=== PATIENT | female | born 1950 | race Caucasian/White ===

== ENCOUNTER → 2016-06-03 | Outpatient (CLI) | payer MEDICARE ==
--- NOTE | 2016-06-04 07:48 | MM ---
Reason for exam: screening (asymptomatic). Last mammogram was performed 1 year ago. History: Patient is postmenopausal. Family history of breast cancer in maternal grandmother and breast cancer in maternal cousin at age 40. Took hormonal contraceptives for 10 years. Physical Findings: A clinical breast exam by your physician is recommended on an annual basis and results should be correlated with mammographic findings. MG Screening Mammo w CAD Bilateral CC and MLO view(s) were taken. Prior study comparison: June 01, 2015, bilateral MG screening mammo w CAD. May 29, 2014, bilateral MG screening mammo w CAD. The breast tissue is almost entirely fat. New nodule measures 1cm approximately 14cm from nipple upper outer quadrant of the right breast. ASSESSMENT: Incomplete: need additional imaging evaluation, BI-RAD 0 RECOMMENDATION: Ultrasound of the right breast. [facility] will attempt to contact patient to return for ultrasound.
== END | disposition home or self-care (01) ==
LOC: RADMAMWWP 08:14
PROVIDERS: ATTEND Family Medicine
DX: Z12.31 Encounter for screening mammogram for malignant neoplasm of breast (principal)

== ENCOUNTER → 2016-06-05 | Outpatient (CLI) | payer MEDICARE ==
--- NOTE | 2016-06-05 08:40 | USB ---
Reason for exam: additional evaluation requested from abnormal screening. History: Patient is postmenopausal. Family history of breast cancer in maternal grandmother and breast cancer in maternal cousin at age 40. Took hormonal contraceptives for 10 years. Physical Findings: Nurse did not find any significant physical abnormalities on exam. US Breast Workup Limited RT Right breast ultrasound demonstrates a 0.7 x 0.4 x 0.7cm solid lesion at 9:30. These results were verbally communicated with the patient and result sheet given to the patient on 06/05/16. ASSESSMENT: Suspicious, BI-RAD 4 RECOMMENDATION: Surgical consultation and ultrasound core biopsy of the right breast. Called Dr. Hill with mammographic findings and has scheduled an appointment for the patient for 06/05/16 at 9:[address] Gonzalez. PRELIMINARY REPORT CALLED AND FAXED TO DR. GONZALEZ ON AT 8:40/TP.
== END ==
LOC: RADUSWWP 07:36
PROVIDERS: ATTEND Family Medicine
DX: R92.8 Other abnormal and inconclusive findings on diagnostic imaging of breast (principal)

== ENCOUNTER → 2016-06-16 | Day surgery (SDC) | payer MEDICARE ==
[~2016-06-16] MED LIST: ALPRAZolam 0.25 MG TAB ONE; BACITRACIN OINT 1 EACH PACKET TOPICAL ONE; LIDOCAINE 1% INJ 10MG/ML (20 ML MDV) ONE
--- NOTE | 2016-06-16 14:00 | USB ---
EXAMINATION TYPE: US discontinued breast bx RT DATE OF EXAM: 06/16/2016 1:15 PM HISTORY: Right breast lesion Comparison: Ultrasound 06/05/2016 as well as mammography 06/03/2016 The lesion seen on prior ultrasound could not be localized with certainty on today's examination. Giv en the appearance of the lesion on mammograph itWas decided to terminate ultrasound guided core biops y and procedure to mammotome core biopsy. This was discussed with the patient. IMPRESSION: 1. BI-RADS 4 suspicious Recommendation: Mammotome core biopsy right breast.
--- NOTE | 2016-06-16 14:16 | MM ---
Stereotactic Mammotome core biopsy right breast. HISTORY: Right breast density The density in question within the right breast were targeted by the undersigned. Procedure was performed by the undersigned. Informed consent was obtained and all of the patients questions were answered. The standard sterile technique was utilized and appropriate local anesthesia was obtained with 1% lidcocaine. Mammotome probe was advanced and multiple core samples were obtained and sent to pathology for interpretation. Microclip marker was deployed at the site of biopsy. Post procedural mammogram demonstrates appropriate deployment of radiopaque clip marker. The patient tolerated the procedure well and left the department in stable condition. Pathology results are pending. IMPRESSION: Successful stereotactic core biopsy right breast with pathology results pending. 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 SEE SURGICAL PATHOLOGY CANCER CASE SUMMARY AND COMMENT. Recommendation Surgical consult of the right breast. DON
== END ==
LOC: RADUSWWP 11:22
PROVIDERS: ATTEND Surgery
DX: C50.911 Malignant neoplasm of unspecified site of right female breast (principal); R92.8 Other abnormal and inconclusive findings on diagnostic imaging of breast
CPT/HCPCS: 19083; 88305; 88342; 88341; 19081; 76641; A4648; J2001

== ENCOUNTER 2016-07-01 11:48 | Day surgery (SDC) | payer MEDICARE, OTHER ==
[2016-06-30 08:28] VITALS: BMI 35.2
[~2016-07-01 11:48] MED LIST changes: -ALPRAZolam 0.25 MG TAB ONE; -BACITRACIN OINT 1 EACH PACKET TOPICAL ONE; +DEXAMETHASONE SOD PHOSPHATE 10 MG/ML 1 ML VIAL IV ONE; +HEPARIN SODIUM,PORCINE 5,000 UNIT/ML 1 ML VIAL SQ ONE; +LACTATED RINGERS 1,000 ML IV SCH; -LIDOCAINE 1% INJ 10MG/ML (20 ML MDV) ONE; +ONDANSETRON 4 MG/2 ML VIAL IVP ONE; +Pre Op ABX Message 1 EACH MISC MISCELLANE ONE
[2016-07-01 12:32] VITALS: RESP 16
[2016-07-01] MEDS ORDERED: LIDOCAINE 1% 20 ML VIAL (10MG/ML) FOR IV START INTRADERMA ONE (12:37)
[2016-07-01 12:48] LABS: Glucose,Whole Blood 93 mg/dL (75-99)
[2016-07-01] MEDS ORDERED: LIDOCAINE 1% INJ 10MG/ML (20 ML MDV) SQ ONE (13:33)
[2016-07-01] MEDS ORDERED: METHYLENE BLUE 50 MG/10 ML AMPUL MISCELLANE ONE (14:05)
[2016-07-01] MEDS ORDERED: METHYLENE BLUE 50 MG/10 ML AMPUL INJ ONE ×3 (14:26→15:08)
[2016-07-01] MEDS ORDERED: CLINDAMYCIN 600 MG in DEXTROSE 5% IN WATER 50 ML IVPB STA ×2 (14:43)
[2016-07-01] MEDS ORDERED: PROPOFOL 10 MG/ML 20 ML VIAL IV ONE (14:49)
[2016-07-01] MEDS ORDERED: fentaNYL (PF) 50 MCG/ML 2 ML AMP ONE (14:49)
[2016-07-01] MEDS ORDERED: LIDOCAINE 1% INJ 10MG/ML (20 ML MDV) ONE (14:49)
[2016-07-01] MEDS ORDERED: SUCCINYLCHOLINE CHLORIDE 100 MG/5 ML SYR IV ONE (14:49)
[2016-07-01] MEDS ORDERED: ROCURONIUM BROMIDE 10 MG/ML 10 ML VIAL IV ONE (14:49)
[2016-07-01] MEDS ORDERED: MIDAZOLAM 2 MG/2 ML VIAL ONE (14:49)
[2016-07-01] MEDS ORDERED: HEPARIN SODIUM,PORCINE 5,000 UNIT/ML 1 ML VIAL SQ ONE (14:55)
[2016-07-01] MEDS ORDERED: LACTATED RINGERS 1,000 ML IV ONE ×2 (15:06)
--- NOTE | 2016-07-01 16:42 | P.OP ---
Date of Procedure: 07/01/16 Preoperative Diagnosis: Right breast cancer Postoperative Diagnosis: Same, invasive ductal Procedure(s) Performed: Injection of methylene blue, right breast lumpectomy, sentinel node biopsy, margin probe interrogation of specimen, placement of Ragini device Implants: Anesthesia: GETA Surgeon: Jael Hurst Estimated Blood Loss (ml): 20 IV fluids (ml): 800 Pathology: other (Right breast tissue, sentinel node) Condition: stable Disposition: PACU Indications for Procedure: Right breast cancer Operative Findings: Right breast nodule/cancer near needle localization wire Description of Procedure: Patient was taken to the operating room and following induction of general anesthesia periareolar injection of methylene blue diluted was performed. The breast was then massaged. The breast and axilla were then prepped and draped in a sterile fashion. A hint scar right lateral incision was then made. Through this incision using the lighted retractor we were able to identify the needle localization guidewire. This was followed superiorly and wide excision of the area of concern was performed. Margin probe interrogation of the specimen was then performed showing that there was some anterior positivity. 4 additional anterior tissue was obtained. The anterior dissection was performed to just under the skin of the breast. The posterior dissection was performed to the chest wall on the muscle. All other margins were negative by interrogation or by palpation. After this the specimen was painted for orientation and sent to radiology, for confirmation that the area of concern about removed was obtained. The axilla was approached through the same incision. A blue radioactive lymph node was identified. The 10 second count on the radioactive lymph node was 20,319, the background count was 4. The lymph node was sent to pathology for frozen section evaluation which did not reveal any tumor. Following this the wound was well irrigated thoroughly was no evidence of any bleeding. A Ragini balloon device was placed in the location of where the tumor had been removed. The superior tissue was approximated using a 3-0 Vicryl suture. The axillary incision was closed using deep 3-0 Vicryl sutures. This was followed by 4-0 Monocryl and a nylon skin suture. The patient tolerated the procedure in stable condition. All instrument and sponge counts were correct at the end of the case.
--- NOTE | 2016-07-01 16:49 | P.DS ---
Providers Attending physician: Jael Hurst Primary care physician: Stated None Plan - Discharge Summary New Discharge Prescriptions: Clindamycin [Cleocin] 150 mg PO Q6H #30 capsule HYDROcodone/APAP 5-325MG [[place] 5] 1 - 2 each PO Q4H PRN #20 tab PRN Reason: Pain Discharge Medication List Magnesium 200 mg PO DAILY 06/30/16 [History] Multivitamins, Thera [Multivitamin (formulary)] 1 tab PO DAILY 06/30/16 [History ] Naproxen 500 mg PO DAILY 06/30/16 [History] metFORMIN HCL [Glucophage Xr] 500 mg PO DAILY 06/30/16 [History] traMADol HCL [Ultram] 50 mg PO TID PRN 06/30/16 [History] Clindamycin [Cleocin] 150 mg PO Q6H #30 capsule 07/01/16 [Rx] HYDROcodone/APAP 5-325MG [[place] 5] 1 - 2 each PO Q4H PRN #20 tab 07/01/16 [Rx] Follow up Appointment(s)/Referral(s): Jael Hurst MD [STAFF PHYSICIAN] - 1 Week Activity/Diet/Wound Care/Special Instructions: Wear bra at all times Do not drive today do not drive if taking pain medication Do not shower while Ragini is in place Discharge Disposition: HOME SELF-CARE
[2016-07-01 16:56] VITALS: TEMP 97.4
[2016-07-01] MEDS: HYDROmorphone 1 MG/ML 1 ML SYRINGE IVP PRN ×2 (16:59→17:08)
[2016-07-01 17:10] LABS: Glucose,Whole Blood 112 mg/dL (75-99)
[2016-07-01] MEDS ORDERED: HYDROcodone/APAP 5-325MG 1 EACH TAB PO ONE (17:39)
[2016-07-01 18:04] VITALS: BP 172/77; PULSE 83
--- NOTE | 2016-07-02 08:04 | NM ---
EXAMINATION TYPE: NM sentinel node injection DATE OF EXAM: 07/01/2016 2:03 PM COMPARISON: NONE HISTORY: Breast cancer TECHNIQUE AND FINDINGS: The procedure of sentinel lymph node injection was explained to the patient. The benefits, alternatives, and risks were discussed. An informed consent was then obtained. Overlying skin is cleaned with sterile alcohol. Lidocaine buffered with bicarbonate was used as anes thetic into the skin and subcutaneous tissue surrounding the nipple. Following this, 545 uCi Tc 99m Filtered Sulfur Colloid was injected into 4 equivalent doses at 12, 3, 6, and 9:00 position surroundi ng the right nipple intradermally. The injection sites were massaged by nuclear medical tech for 10 minutes after injection. T he patient tolerated the procedure well without any immediate complication. The patient was kept in the radiology department for short stay after the procedure and then taken to surgery for surgical pr ocedure what is presumed intraoperative gamma probe will be used for sentinel lymph node detection. IMPRESSION: Right breast radiotracer injection for sentinel node localization as above.
--- NOTE | 2016-07-02 08:07 | MM ---
EXAMINATION TYPE: MG surgical specimen RT DATE OF EXAM: 07/01/2016 4:15 PM COMPARISON: NONE CLINICAL HISTORY: Abnormal mammogram, pathology Technique: Single mammographic specimen FINDINGS: The wire is within the specimen. Surgical clip localized within the specimen. The area of interest appears to be within the specimen. IMPRESSION: 1. Successful wire localization and excision. Recommendations: Surgical consult of the right breast. DON
--- NOTE | 2016-07-02 08:09 | MM ---
EXAMINATION TYPE: MG pre op needle loc RT DATE OF EXAM: 07/01/2016 2:08 PM COMPARISON: 06/16/2016, 06/03/2016 CLINICAL HISTORY: Abnormal mammogram, pathology TECHNIQUE: Needle localization with wire placement and surgical excision of area of concern in the right breast. FINDINGS: The procedure of needle localization with wire placement and than surgical excision was explained to the patient. Benefits, alternatives, and risks were discussed. An informed consent was then obtained. The shortest pathway for procedure was chosen. Shortest pathway was lateral approach. The overlying skin was prepped and draped in usual sterile fashion. Lidocaine buffered with bicarbonate was used as anesthetic into the skin and subcutaneous tissue up to the level of area of concern. A 7 cm needle was used. It was placed via a lateral approach under mammographic guidance. Subsequent 90 degrees mammogram show the needle to be in satisfactory position relative to the targeted area. At this point, wire was placed and the needle was withdrawn. The wire was fixed to patient's skin. Images were marked for surgeon. The patient tolerated the procedure well without any immediate complication. The patient was kept in the radiology department for short stay after the procedure and then taken to surgery for surgical excision. Targeted surgical clip and wire are identified in specimen mammogram. The patient was kept in hospital for short stay after the procedure and then discharged home in stable condition. IMPRESSION: 1. Successful wire localization and excision. Recommendations: 1. Recommendations are pending pathology results. Pathology Results: Malignant A. LYMPH NODE, RIGHT SENTINEL NODE, BIOPSY: TWO LYMPH NODES NEGATIVE FOR METASTASIS, CYTOKERATIN 7 AND KAMINI IMMUNOHISTOCHEMICAL STAINS ARE CONFIRMATORY ( CONTROLS APPROPRIATE). B. BREAST, RIGHT, IMAGE GUIDED LOCALIZATION AND RESECTIONS: RESIDUAL INVASIVE DUCTAL CARCINOMA AND DICT CARCINOMA IN-SITU WITH INVOLVEMENT OF A PAPILLOMA. LOBULAR CARCINOMA IN SITU. FIBROCYSTIC CHANGE (STROMAL FIBROSIS, CYST FORMATION , APOCRINE METAPLASIA, ADENOSIS, FEATURES OF DUCT ECTASIA, COLUMNAR CELL CHANGE AND DUCT HYPERPLASIA). BIOPSY SITE CHANGE. Recommendation Surgical consult of the right breast. [facility]
== END 2016-07-01 18:19 | disposition home or self-care (01) ==
LOC: OR 11:48
PROVIDERS: ATTEND Surgery
DX: C50.911 Malignant neoplasm of unspecified site of right female breast (principal); D05.01 Lobular carcinoma in situ of right breast; D24.1 Benign neoplasm of right breast; N60.31 Fibrosclerosis of right breast; N60.01 Solitary cyst of right breast; N60.81 Other benign mammary dysplasias of right breast; N60.41 Mammary duct ectasia of right breast; N60.21 Fibroadenosis of right breast; N60.91 Unspecified benign mammary dysplasia of right breast; E11.9 Type 2 diabetes mellitus without complications; M19.90 Unspecified osteoarthritis, unspecified site; Z79.84 Long term (current) use of oral hypoglycemic drugs; Z79.891 Long term (current) use of opiate analgesic; Z79.51 Long term (current) use of inhaled steroids; Z79.899 Other long term (current) drug therapy; Z88.0 Allergy status to penicillin
CPT/HCPCS: 19301; 38500; 88342; 88331; 88307; 88341; 76098; 19281; 38792; C1713; A9541; J2250; J1644; J1100; J2405; J2001; J3010; J1170; J0330; J2704; Q9968

== ENCOUNTER → 2016-09-01 | Outpatient (CLI) | payer MEDICARE ==
--- NOTE | 2016-09-01 16:30 | BD ---
EXAMINATION TYPE: MG DEXA axial skeleton. DATE OF EXAM: 09/01/2016 COMPARISON: NONE CLINICAL HISTORY: Height: 5 FT 6 IN Weight: 212 FRAX RISK QUESTIONS: Alcohol (3 or more units per day): NO Family History (Parent hip fracture): NO Glucocorticoids (More than 3mos): NO (Ex: prednisone, prednisolone, methylprednisolone, dexamethasone, and hydrocortisone). History of Fracture in Adulthood: YES Secondary Osteoporosis: 1. Type 1 Diabetes: NO 2. Hyperthyroidism: NO 3. Menopause before 45: YES 4. Malnutrition: NO 5. Chronic liver disease: NO Rheumatoid Arthritis: NO Current Tobacco Use: NO RISK FACTORS HISTORY OF: History of Wrist Fracture: ROMAINE WRIST FX When: MULTIPLE TIMES IN HER LIFE LAST BEING LT WRIST AGE 55 Surgery to Spine/Hip(right/left)/Wrist (right/left): LT WRIST When: AGE 55 Active: NO Postmenopausal woman: AGE 45 MEDICATIONS: Additional Medications: EXEMESTANE,METFORMIN, Additional History: BREAST CANCER 2017,SAVVY RADIATION EXAM MEASUREMENTS: Bone mineral densitometry was performed using the Beamly System. Bone mineral density as measured about the Lumbar spine is: ----- L1-L4(G/cm2): 1.054 T Score Values are as follows: ----- L2: -0.8 ----- L3: -1.1 ----- L4: -1.3 ----- L1-L4: -1.0 Bone mineral density has: Decreased -5.5% since study of: 2013 Bone mineral density about the R hip (g/cm2): 0.790 Bone mineral density about the L hip (g/cm2): 1.003 T Score values are as follows: -----R Neck: -1.8 -----L Neck: -0.3 -----R Total: -1.2 -----L Total: 0.1 Bone mineral density has: Decreased -8.2% since study of: 2013 IMPRESSION: OSTEOPENIA NOTE: T-SCORE=SD OF THE YOUNG ADULT MEAN.
== END | disposition home or self-care (01) ==
LOC: RADBDWWP 14:35
PROVIDERS: ATTEND Internal Medicine Hematology & Oncology
DX: C50.411 Malignant neoplasm of upper-outer quadrant of right female breast (principal); M85.80 Other specified disorders of bone density and structure, unspecified site; Z79.890 Hormone replacement therapy
CPT/HCPCS: 77080

== ENCOUNTER → 2017-06-12 | Outpatient (CLI) | payer MEDICARE ==
--- NOTE | 2017-06-12 11:20 | MM ---
Reason for exam: additional evaluation requested from prior study. Last mammogram was performed 6 months ago. History: Patient is postmenopausal, has history of breast cancer at age 65, and history of other cancer. Family history of breast cancer in maternal grandmother and breast cancer in maternal cousin at age 40. Malignant MG pre op needle loc RT of the right breast, July 01, 2016. Malignant MG stereo VAD BX RT of the right breast, June 16, 2016. US discontinued breast bx RT of the right breast, June 16, 2016. Radiation therapy of the right breast, 2017. Took hormonal contraceptives for 10 years. Taking antineoplastic beginning at age 65. Physical Findings: Nurse did not find any significant physical abnormalities on exam. MG 3D Diag Mammo W/Cad ROMAINE Bilateral CC and MLO view(s) were taken. Prior study comparison: December 18, 2016, right breast MG diagnostic mammo RT w CAD. June 03, 2016, bilateral MG screening mammo w CAD. There are scattered fibroglandular densities. Finding #1: There is a distortion with a 40 mm circumscribed round mass in the upper outer quadrant, posterior position of the right breast, presumed post treatment change and fluid collection. Finding #2: There are typically benign round, linear calcifications in both breasts. There is no discrete abnormality. These results were verbally communicated with the patient and result sheet given to the patient on 06/12/17. ASSESSMENT: Benign, BI-RAD 2 RECOMMENDATION: Follow-up diagnostic mammogram of both breasts in 1 year.
== END | disposition home or self-care (01) ==
LOC: RADMAMWWP 08:49
PROVIDERS: ATTEND Surgery
DX: Z08 Encounter for follow-up examination after completed treatment for malignant neoplasm (principal); Z85.3 Personal history of malignant neoplasm of breast
CPT/HCPCS: 77066; G0279

== ENCOUNTER → 2018-06-09 | Outpatient (CLI) | payer MEDICARE ==
[2018-06-09 10:34] LABS: Appearance,Urine Clear (Clear); Bilirubin,Urine Negative (Negative); Blood,Urine Negative (Negative); Color,Urine Yellow; Glucose,Urine (UA) Negative (Negative); Ketones,Urine Negative (Negative); Leukocyte Esterase,Urine Negative (Negative); Nitrite,Urine Negative (Negative); Protein,Urine Negative (Negative); Specific Gravity,Urine 1.025 (1.001-1.035); Urobilinogen,Urine <2.0 mg/dL (<2.0)
[2018-06-09 10:40] LABS: Partial Thromboplastin Time 23.2 sec (22.0-30.0); Prothrombin Time 10.3 sec (9.0-12.0)
[2018-06-09 10:53] LABS: HCT 46.1 % (34.0-46.0); HGB 15.2 gm/dL (11.4-16.0); MCH 30.1 pg (25.0-35.0); MCV 91.3 fL (80.0-100.0); Mean Platelet Volume 7.5; Platelet Count 228 k/uL (150-450); RBC 5.05 m/uL (3.80-5.40); RDW 13.4 % (11.5-15.5); WBC 5.8 k/uL (3.8-10.6)
[2018-06-09 11:14] LABS: ALT 27 U/L (9-52); AST 16 U/L (14-36); Albumin 4.6 g/dL (3.5-5.0); Alkaline Phosphatase 85 U/L (38-126); Anion Gap 8 mmol/L; Blood Urea Nitrogen 17 mg/dL (7-17); Calcium 9.7 mg/dL (8.4-10.2); Carbon Dioxide 27 mmol/L (22-30); Chloride 107 mmol/L (98-107); Glucose 96 mg/dL (74-99); Potassium 4.6 mmol/L (3.5-5.1); Sodium 142 mmol/L (137-145); Total Bilirubin 0.7 mg/dL (0.2-1.3); Total Protein 6.9 g/dL (6.3-8.2)
== END | disposition home or self-care (01) ==
LOC: LABPAT 09:59
PROVIDERS: ATTEND Orthopaedic Surgery
DX: Z01.812 Encounter for preprocedural laboratory examination (principal)
CPT/HCPCS: 36415; 80053; 81003; 85027; 85610; 85730; 87070

== ENCOUNTER 2018-06-22 07:00 | Inpatient (IN) | payer MEDICARE ==
[~2018-06-22 07:00] MED LIST changes: +ACETAMINOPHEN TAB 500 MG TAB PO ONE; +CLINDAMYCIN 900 MG in DEXTROSE 5% IN WATER 50 ML IVPB ONE; -HEPARIN SODIUM,PORCINE 5,000 UNIT/ML 1 ML VIAL SQ ONE; +HYDROmorphone 0.5 MG/0.5 ML SYRINGE IVP PRN; -LACTATED RINGERS 1,000 ML IV SCH; +MELOXICAM 7.5 MG TAB PO ONE; +MIDAZOLAM (PF) 2 MG/2 ML VIAL IV PRN; -Pre Op ABX Message 1 EACH MISC MISCELLANE ONE; +ROPIVACAINE 246.25 MG, EPINEPHrine 0.5 MG, KETOROLAC 30 MG, cloNIDine HCL/PF 80 MCG, WA... MISCELLANE ONE; +TRANEXAMIC ACID 1,000 MG in SODIUM CHLORIDE 0.9% 100 ML IVPB ONE
[2018-06-22] MEDS ORDERED: LIDOCAINE 1% 20 ML VIAL (10MG/ML) FOR IV START INTRADERMA ONE (13:25)
[2018-06-22] MEDS ORDERED: MIDAZOLAM (PF) 2 MG/2 ML VIAL IV ONE (13:32)
[2018-06-22 13:39] LABS: Glucose,Whole Blood 109 mg/dL (75-99)
[2018-06-22] MEDS ORDERED: MIDAZOLAM 2 MG/2 ML VIAL ONE (13:55)
[2018-06-22] MEDS ORDERED: TRANEXAMIC ACID 1,000 MG/10 ML VIAL ONE (13:55)
[2018-06-22] MEDS ORDERED: fentaNYL (PF) 50 MCG/ML 2 ML AMP ONE (13:55)
[2018-06-22] MEDS ORDERED: SODIUM CHLORIDE 0.9% 100 ML BAG ONE (13:55)
[2018-06-22] MEDS: LACTATED RINGERS 1,000 ML IV SCH (13:58)
[2018-06-22] MEDS ORDERED: CLINDAMYCIN 1,800 MG in SODIUM CHLORIDE 0.9% IRRIGATIO 3,000 ML IRRIGATION ONE (14:29)
[2018-06-22] MEDS ORDERED: ROPIVACAINE 1,100 MG, SODIUM CHLORIDE 0.9% 500 ML 330 ML MISCELLANE PRN ×2 (14:47)
--- NOTE | 2018-06-22 14:49 | P.ONQ ---
Anesthesiology Proc Note - PNB - Peripheral Nerve Block Performed Right Adductor Canal Infusion Time Out Performed: Yes Procedure Start Time: 13:32 Procedure Stop Time: 13:45 Indication: Acute Post-Operative Pain, Analgesia, Requested by physician Sedation Type: Sedate with meaningful contact maintained Preparation: Sterile Dressing Position: Supine Catheter: Indwelling Needle Types: On-Q Needle Size: 100mm (4") Needle Gauge: 18 Injectate: 0.5% Ropivacaine (see comment for volume) (20 ml) Blood Aspirated: No Pain Paresthesia on Injection Noted: No Resistance on Injection: Normal Events: Uneventful and Well Tolerated
--- NOTE | 2018-06-22 15:12 | P.OP ---
Date of Procedure: 06/22/18 Preoperative Diagnosis: Severe osteoarthritis right knee Postoperative Diagnosis: Severe osteoarthritis right knee Procedure(s) Performed: Right total knee arthroplasty Implants: Hernandez and Nephew Journey II CR Oxinium cruciate retaining femoral component size 5, right Hernandez & Nephew Journey right nonporous tibial baseplate size 4 Hernandez [employer] Nephew Journey II, XLPE Deep Dished articular insert, size 11 mm, Size 3-4 right Hernandez & Nephew Journey BCS resurfacing oval patellar component, 29 mm All components were cemented using [place] R bone cement.. The articulation is Oxinium on polyethylene. Anesthesia: spinal Surgeon: Royal Helms Brim Pouncer Machine Operator #1: Saadia Das Estimated Blood Loss (ml): 50 Pathology: other (Bone and cartilage) Condition: stable Disposition: PACU Indications for Procedure: After failure of conservative treatment we discussed the surgical and nonsurgical treatment options at length. Patient wishes to proceed with a total knee arthroplasty. Complications specific to this procedure were discussed at length, including but not limited to infection, bleeding, stiffness, and nerve injury. Patient is aware of all these complications and informed consent was obtained Operative Findings: The operative findings are consistent with severe osteoarthritis the left knee Description of Procedure: Patient was seen in the preoperative area consent was reviewed and operative site was marked with a skin marker. An adductor canal pain catheter was placed by anesthesia in the preoperative area. Patient was then brought to the operating room and given preoperative antibiotics intravenously. A spinal anesthetic was administered by the anesthesia department. A tourniquet was placed on the upper thigh and the lower extremity was prepped and draped in usual sterile fashion. A gram of transexamic acid was given. A universal timeout was then performed which confirmed the patient's name, surgical site, ALLERGIES, and consent. The lower extremity was then exsanguinated and tourniquet was inflated to 250 mmHg. A standard and anterior midline approach to the knee was performed. The skin and subcutaneous tissue was dissected down to the patellar tendon. A medial parapatellar arthrotomy was then performed. The knee was then extended, the patellar was everted, and the knee was again flexed. Anterior horns of both menisci were excised, and a release was performed to the posterior medial aspect of the knee. On gross visual inspection, there was complete loss of articular cartilage in the medial and patellofemoral joint spaces. There was also significant cartilage damage in the lateral compartment. There were multiple periarticular osteophytes which were then removed with a Ronguer. The femoral canal was then opened with the appropriate drill, and the intramedullary femoral cutting guide was then placed and set for 5 of valgus. The distal femoral cutting block was then pinned in place, and the distal femur was then cut. The cutting block was then removed and the cut was checked for flatness. Next, the sizing guide was then placed and set for 3 external rotation based off of the epicondylar axis and Whitesides line. After the femur was sized, the appropriate 4-in-1 cutting block was then pinned in place. The anterior condyles were cut without notching. The posterior and chamfer cuts were performed while protecting the collateral ligaments. The cutting block was then removed, and the femoral canal was plugged with autologous bone. Attention was then directed to the tibia. The remaining ACL was removed with a Ronguer, and the tibia was then gently subluxed forward with a large bent knee retractor. Any remaining menisci was excised. The posterior lateral corner was cauterized in order to cauterize the lateral geniculate artery. The extra medullary tibial cutting guide was then placed, set for the appropriate rotation, slope, and depth of resection. The proximal tibia cutting guide was then pinned in place. Proximal tibia was then cut and sized. Next trials were then placed with the appropriate-sized insert. The knee was able to fully extend and flex to 130 and was stable throughout all range of motion. The knee was then extended, patella everted. Patella was then measured, and then using an osteotomy guide, the patella was cut at the appropriate level. The patella was then measured and drilled and the patella trial was then placed. The knee was then taken through range of motion with the patella trial and the patella tracked normally. The knee was then extended patella trial was then removed and the patella was everted. Knee was then flexed and lug holes were drilled through the femoral trial and the femoral trial was then removed. The tibial was then exposed, and the tibial broach guide was then pinned in place after it was set for the appropriate rotation to allow for the most coverage without overhang. The tibia was then reamed and broached. The cut surfaces of bone were then irrigated with pulsatile lavage. The posterior structures were injected with the ropivacaine solution. The knee was also irrigated with Irrisept solution. The components were then opened, the cement was mixed, and the components were then cemented in place. The cement was allowed to harden with the knee in full extension. While the cement was hardening, the remaining soft tissues were then injected with a ropivacaine solution, which consisted of 246.25 mg of ropivacaine, 0.5 mg of epinephrine, 30 mg of Toradol, 80 g of clonidine, and 48.45 mL of sterile water, for a total of 100 mL of fluid injected. After the cemented hardened. The tourniquet was released, and hemostasis was obtained. A second gram of transexamic acid was given. The knee was again irrigated. The knee was again taken through range of motion and found to be stable throughout all range of motion of 0-130, and the patella tracked normally. The fascia was then closed with #2 strata fix suture. The subcutaneous tissue was closed with 3-0 Vicryl and 3-0 strata fix. Dermabond glue was used for the skin and placed with the knee in flexion. The patient was placed in a sterile silver dressing. Patient was then transferred to recovery room in stable condition. The orthodontic technician assistant JONNY Calabrese was required due the complexity surgery and the need for a skilled surgical elastic knitter. She assisted in positioning, draping, retraction, and closure of the wound.
[2018-06-22] MEDS ORDERED: DIAZEPAM 5 MG TAB PO PRN (15:47)
[2018-06-22] MEDS ORDERED: NALOXONE 0.4 MG/ML 1 ML VIAL IV PRN (15:47)
[2018-06-22] MEDS ORDERED: HYDROmorphone 0.5 MG/0.5 ML SYRINGE IVP PRN ×3 (15:47)
[2018-06-22] MEDS ORDERED: BISACODYL 10 MG SUPP RECTAL PRN (15:47)
[2018-06-22] MEDS ORDERED: ONDANSETRON 4 MG/2 ML VIAL IVP PRN (15:47)
[2018-06-22] MEDS ORDERED: NA PHOS,M-B/NA PHOS,DI-BA 133 ML ENEMA RECTAL PRN (15:47)
[2018-06-22] MEDS ORDERED: HYDROcodone/APAP 5-325MG 1 EACH TAB PO PRN (15:47)
[2018-06-22] MEDS ORDERED: MAGNESIUM HYDROXIDE 2,400 MG/10 ML CUP PO PRN (15:47)
--- NOTE | 2018-06-22 16:17 | XR ---
EXAMINATION TYPE: XR knee limited RT DATE OF EXAM: 06/22/2018 COMPARISON: NONE HISTORY: 67-year-old female evaluation for postoperative abnormality and alignment TECHNIQUE: 2 views FINDINGS: Images show placement of right total knee arthroplasty. Both distal femoral and proximal tibial compo nents of the prosthesis appear well seated without periprosthetic fracture. Alignment grossly anatomi c. Prominent anterior soft tissue swelling with soft tissue air as well as intra-articular air and sabrina int fluid compatible with recent operation. IMPRESSION: Uncomplicated postoperative appearance right total knee arthroplasty.
[2018-06-22 16:40] VITALS: BMI 34.4
[2018-06-22 17:09] LABS: Glucose,Whole Blood 118 mg/dL (75-99)
[2018-06-22] MEDS: INSULIN ASPART (NovoLOG) 100 UNIT/ML VIAL SQ SCH ×2 (17:24→21:04)
[2018-06-22] MEDS: metFORMIN 500 MG TAB PO SCH (17:28)
[2018-06-22] MEDS: SODIUM CHLORIDE 0.9% 1,000 ML IV SCH (17:28)
[2018-06-22] MEDS ORDERED: LISINOPRIL 2.5 MG TAB PO SCH (18:00)
[2018-06-22] MEDS: HYDROcodone/APAP 5-325MG 1 EACH TAB PO PRN (19:35)
[2018-06-22] MEDS: hydrOXYzine PAMOATE 25 MG CAP PO PRN (19:36)
[2018-06-22] MEDS: CLINDAMYCIN 900 MG in DEXTROSE 5% IN WATER 50 ML IVPB SCH ×2 (19:41)
[2018-06-22 20:38] LABS: Glucose,Whole Blood 232 mg/dL (75-99)
[2018-06-22] MEDS ORDERED: SENNOSIDES-DOCUSATE SODIUM 1 EACH TAB PO SCH (21:00)
[2018-06-22] MEDS: ASPIRIN 325 MG TAB PO SCH (21:04)
[2018-06-23] MEDS: CLINDAMYCIN 900 MG in DEXTROSE 5% IN WATER 50 ML IVPB SCH ×2 (01:01)
[2018-06-23] MEDS: hydrOXYzine PAMOATE 25 MG CAP PO PRN (01:11)
[2018-06-23] MEDS: HYDROcodone/APAP 5-325MG 1 EACH TAB PO PRN ×3 (01:11→13:21)
[2018-06-23 01:40] VITALS: RESP 16
[2018-06-23] MEDS: LACTATED RINGERS 1,000 ML IV SCH (05:09)
--- NOTE | 2018-06-23 06:46 | CONS ---
CONSULTATION DATE OF SERVICE: 06/22/2018 REASON FOR CONSULTATION: Advice regarding diabetes and other multiple medical issues requested by Orthopedic Surgery. HISTORY OF PRESENT ILLNESS: This 67-year-old woman with a past medical history of diabetes, history of DJD, history of irritable bowel syndrome, cholecystectomy, hysterectomy, being followed by Dr. Hill in the outpatient setting underwent right total knee joint arthroplasty by Dr. Helms. The patient tolerated the procedure well. There is no history of chest pain or palpitations. No history of headache, loss of consciousness. No history of. The patient was admitted for further evaluation and treatment. PAST MEDICAL HISTORY: History of diabetes mellitus, history of DJD, history of irritable bowel syndrome, , history of cholecystectomy, history of hysterectomy. MEDICATIONS: Medications prior to admission include home medications are: 1. Ultram 50 mg t.i.d. p.r.n. 2. Glucophage XR 500 mg p.o. b.i.d. 3. Multivitamins 1 p.o. daily. 4. Magnesium 200 mg p.o. daily. 5. Zestril 2.5 mg daily. 6. Aromasin 25 mg p.o. daily. 7. Tylenol No. 3, one tab t.i.d. p.r.n. ALLERGIES: ADHESIVES and PENICILLIN. FAMILY HISTORY: History of pancreatic and bladder cancer and skin cancer. SOCIAL HISTORY: History of THC. Occasionally history of alcohol. History of smoking. REVIEW OF SYSTEMS: ENT: No diminished hearing or diminished vision. CARDIOVASCULAR SYSTEM: No angina. RESPIRATORY SYSTEM: No cough. GI: No nausea. : No dysuria. NERVOUS SYSTEM: No numbness or weakness. ALLERGY/IMMUNOLOGY: No asthma or hayfever. MUSCULOSKELETAL: As mentioned earlier. HEMATOLOGY/ONCOLOGY: No history of anemia. ENDOCRINE: Diabetes mellitus. CONSTITUTIONAL: As mentioned earlier. DERMATOLOGY: Negative. RHEUMATOLOGY: Negative. PSYCHIATRY: As mentioned earlier. PHYSICAL EXAMINATION: The patient is alert and oriented x3. Pulse 105, blood pressure 108/68, respirations normal, pulse ox 92% on room air. HEENT: Conjunctivae normal. Oral mucosa moist. Neck is no jugular venous distention. No carotid bruit. No lymph node enlargement. CARDIOVASCULAR: S1, S2, tachycardia mildly. RESPIRATORY: Breaths sounds diminished at the bases. No rhonchi, no crackles. ABDOMEN: Soft, nontender. LEGS: Status post surgery. NERVOUS SYSTEM: Higher functions as mentioned earlier. Moves all 4 limbs. No focal motor deficit. LYMPHATICS: No lymphadenopathy of the neck, axillae or groin. SKIN: No ulcer, rash or bleeding. JOINTS: No active deforming arthropathy. LABS: Labs are Accu-Cheks 109, 118, 232. ASSESSMENT: 1. Status post right total knee joint arthroplasty. 2. Diabetes mellitus type 2. 3. History of degenerative joint disease. 4. History of irritable bowel syndrome. 5. History of basal cell cancer. 6. History of breast cancer. 7. History of narrow angle glaucoma. 8. History of cholecystectomy. 9. Remote history of nicotine dependence. RECOMMENDATIONS AND DISCUSSION: This 67-year-old woman presented with multiple medical issues, at this time I recommend to continue current medications and symptomatic treatment. Otherwise DVT prophylaxis. I would recommend to monitor blood sugars closely, insulin to scale. I would also recommend hemoglobin A1c. Also note that the baseline labs are normal prior to surgery. We will continue to monitor. Further recommendations to follow. Thank you Dr. Helms for letting us participate in the care of this patient. Recommend the patient to follow up closely with Dr. Hill after discharge. MMODL / IJN: [id number] / DON
[2018-06-23 07:03] LABS: Glucose,Whole Blood 131 mg/dL (75-99)
--- NOTE | 2018-06-23 07:20 | P.PN ---
Progress Note - Text Progress Note Date: 06/23/18 The patient is postop day 1 from a right total knee replacement with adductor canal catheter. The patient reports good pain control. The patient is ambulating without weakness. Catheter site is clean and dry without signs of infection. A/P POD #1 s/p R TKA - doing well
[2018-06-23] MEDS: metFORMIN 500 MG TAB PO SCH (07:32)
[2018-06-23] MEDS: ASPIRIN 325 MG TAB PO SCH (07:33)
[2018-06-23] MEDS: INSULIN ASPART (NovoLOG) 100 UNIT/ML VIAL SQ SCH ×2 (07:33→12:02)
[2018-06-23 07:36] VITALS: BP 101/65; PULSE 71; TEMP 97.8
[2018-06-23] MEDS: SODIUM CHLORIDE 0.9% 1,000 ML IV SCH (07:36)
[2018-06-23 08:44] LABS: Basophils % (A) 0 %; Eosinophils % (A) 0 %; HCT 36.6 % (34.0-46.0); Lymphocytes # (A) 0.9 k/uL (1.0-4.8); Lymphocytes % (A) 7 %; MCHC 32.4 g/dL (31.0-37.0); MCV 92.6 fL (80.0-100.0); Mean Platelet Volume 7.8; Monocytes # (A) 0.5 k/uL (0-1.0); Monocytes % (A) 4 %; Neutrophils # (A) 11.6 k/uL (1.3-7.7); Neutrophils % (A) 89 %; Platelet Count 219 k/uL (150-450); RBC 3.95 m/uL (3.80-5.40); RDW 13.3 % (11.5-15.5); WBC 13.1 k/uL (3.8-10.6)
[2018-06-23 08:53] LABS: HGB 11.9 gm/dL (11.4-16.0)
[2018-06-23] MEDS ORDERED: MAGNESIUM OXIDE 400 MG TAB PO SCH (09:00)
[2018-06-23] MEDS ORDERED: MELOXICAM 7.5 MG TAB PO SCH (09:00)
--- NOTE | 2018-06-23 09:24 | P.DS ---
Providers Date of admission: 06/22/18 12:25 Expected date of discharge: 06/23/18 Attending physician: Royal Helms Consults: 06/22/18 15:47 Consult Physician Routine Consulting Provider: Monica Hill Consult Reason/Comments: medical management Do you want consulting provider notified?: Yes 06/22/18 16:43 Consult Physician Routine Consulting Provider: Frankie Nolen Consult Reason/Comments: medical mangement Do you want consulting provider notified?: Already Contacted Primary care physician: Monica Hill - Discharge Diagnosis(es) (1) S/P total knee arthroplasty Current Visit: Yes Status: Acute (2) Osteoarthritis of right knee Current Visit: Yes Status: Acute Hospital Course: This is a 67-year-old female with known history of degenerative arthritis of the right knee. The patient presents for evaluation. After discussion and consideration patient elects to proceed with total knee arthroplasty. The patient is seen preoperatively by Dr. Helms and medically cleared for surgery by their primary care physician. Patient is admitted to [facility] on 06/22/2018 for total knee arthroplasty. The procedures performed without complication or sequelae. The patient is doing well postoperatively. Labs and vital signs are stable on day of discharge. On day of discharge patient's knee incision is healing well. There is minimal erythema. There is no drainage noted at this time. There is minimal soft tissue swelling to the knee. Patient has full foot and ankle motion without difficulty or pain. Calf is soft and nontender to palpation. Neurovascular status to the right lower extremity is intact. Patient is discharged home in good condition. Opioid start talking form is reviewed and signed at patient bedside. Please see med rec for accurate list of home medications. Plan - Discharge Summary Discharge Rx Participant: Yes New Discharge Prescriptions: New Aspirin 325 mg PO BID #60 tab HYDROcodone/APAP 5-325MG [[place] 5-325] 1 - 2 tab PO Q6HR PRN #56 tab PRN Reason: Pain Sennosides [Senokot] 1 tab PO BID #60 tablet No Action Multivitamins, Thera [Multivitamin (formulary)] 1 tab PO DAILY traMADol HCL [Ultram] 50 mg PO TID PRN PRN Reason: Pain metFORMIN HCL [Glucophage Xr] 500 mg PO BID Magnesium 200 mg PO DAILY Lisinopril [Zestril] 2.5 mg PO DAILY@1800 Acetaminophen-Codeine 300-30mg [Tylenol w/codeine #3] 1 tab PO TID PRN PRN Reason: Pain Exemestane [Aromasin] 25 mg PO DAILY Discharge Medication List Magnesium 200 mg PO DAILY 06/30/16 [History] Multivitamins, Thera [Multivitamin (formulary)] 1 tab PO DAILY 06/30/16 [History] metFORMIN HCL [Glucophage Xr] 500 mg PO BID 06/30/16 [History] traMADol HCL [Ultram] 50 mg PO TID PRN 06/30/16 [History] Acetaminophen-Codeine 300-30mg [Tylenol w/codeine #3] 1 tab PO TID PRN 06/17/18 [History] Exemestane [Aromasin] 25 mg PO DAILY 06/17/18 [History] Lisinopril [Zestril] 2.5 mg PO DAILY@1800 06/17/18 [History] Aspirin 325 mg PO BID #60 tab 06/23/18 [Rx] HYDROcodone/APAP 5-325MG [[place] 5-325] 1 - 2 tab PO Q6HR PRN #56 tab 06/23/18 [Rx] Sennosides [Senokot] 1 tab PO BID #60 tablet 06/23/18 [Rx] Follow up Appointment(s)/Referral(s): Royal Helms DO [Doctor of Osteopathic Medicine] - 2 Weeks Activity/Diet/Wound Care/Special Instructions: Weightbearing as tolerated with a walker. CPM 5-6h daily. Leave dressing intact. May be removed by home care nurse or by patient in 10 days. May shower with dressing on. Please follow up with [facility] and call with any questions or concerns, . Discharge Disposition: HOME WITH HOME HEALTH SERVICES
[2018-06-23 11:53] LABS: Glucose,Whole Blood 108 mg/dL (75-99)
--- NOTE | 2018-06-23 15:58 | PN ---
PROGRESS NOTE DATE OF SERVICE: 06/23/2018 This 67-year-old woman who was admitted after right total knee arthroplasty is improving significantly. No chest pain. No palpitations. No fever. On exam, alert and oriented x3. Pulse is 71, blood pressure 101/65, respirations 16, temperature 97.8, pulse ox 96% on room air. HEENT: Conjunctivae normal. NECK: No jugular venous distention. CARDIOVASCULAR SYSTEM: S1, S2 muffled. RESPIRATORY SYSTEM: Breath sounds diminished at the bases. No rhonchi. No crackles. ABDOMEN: Soft, non-tender. LEGS: Status post right knee surgery. NERVOUS SYSTEM: No focal deficit. LABS: WBC 13.1. Glucose 108. Accu-Cheks noted. ASSESSMENT: 1. Status post right total knee joint arthroplasty. 2. Diabetes mellitus, type 2. 3. History of degenerative joint disease. 4. History of irritable bowel syndrome. 5. History of basal cell cancer. 6. History of breast cancer. 7. History of narrow angle glaucoma. 8. History of cholecystectomy. 9. Remote history of nicotine dependence. RECOMMENDATIONS AND DISCUSSION: I recommend to continue current medications, continue with the monitoring, symptomatic treatment. I would recommend DVT prophylaxis. Resume the home medications. Closely follow with Dr. Hill after discharge. Further recommendations per Orthopedic Surgery. Further recommendations to follow. MMODL / IJN: [id number] /
== END 2018-06-23 13:51 | disposition home health service (06) | DRG 470 ==
LOC: 2ORMAIN 12:25 → 4SSUR 15:43
PROVIDERS: ADMIT Orthopaedic Surgery; ATTEND Orthopaedic Surgery
PROC: 3E0T3BZ Introduction of Anesthetic Agent into Peripheral Nerves and Plexi, Percutaneous Approach (ICD-10-PCS; 2018-06-22)
PROC: 0SRC069 Replacement of Right Knee Joint with Oxidized Zirconium on Polyethylene Synthetic Substitute, Cemented, Open Approach (ICD-10-PCS; principal; 2018-06-22 15:00)
DX: M17.11 Unilateral primary osteoarthritis, right knee (principal); E11.9 Type 2 diabetes mellitus without complications; H40.20X0 Unspecified primary angle-closure glaucoma, stage unspecified; K58.9 Irritable bowel syndrome, unspecified; Z80.52 Family history of malignant neoplasm of bladder; Z80.8 Family history of malignant neoplasm of other organs or systems; Z85.3 Personal history of malignant neoplasm of breast; Z85.828 Personal history of other malignant neoplasm of skin; Z87.891 Personal history of nicotine dependence; Z90.49 Acquired absence of other specified parts of digestive tract; Z90.710 Acquired absence of both cervix and uterus; Z80.0 Family history of malignant neoplasm of digestive organs; Z79.84 Long term (current) use of oral hypoglycemic drugs; Z79.899 Other long term (current) drug therapy
CPT/HCPCS: 83036; 85025

== ENCOUNTER → 2018-08-23 | Outpatient (CLI) | payer MEDICARE ==
--- NOTE | 2018-08-23 10:06 | MM ---
Reason for exam: additional evaluation requested from prior study. Last mammogram was performed 1 year and 2 months ago. History: Patient is postmenopausal, has history of breast cancer at age 65, and history of other cancer. Family history of breast cancer in maternal grandmother and breast cancer in maternal cousin at age 40. Malignant MG pre op needle loc RT of the right breast, July 01, 2016. Malignant MG stereo VAD BX RT of the right breast, June 16, 2016. US discontinued breast bx RT of the right breast, June 16, 2016. Radiation therapy of the right breast, 2017. Took hormonal contraceptives for 10 years. Taking antineoplastic beginning at age 65. Physical Findings: Nurse did not find any significant physical abnormalities on exam. MG 3D Diag Mammo W/Cad ROMAINE Bilateral CC and MLO view(s) were taken. XCCL view(s) were taken of the right breast. Prior study comparison: June 12, 2017, bilateral MG 3d diag mammo w/cad ROMAINE. December 18, 2016, right breast MG diagnostic mammo RT w CAD. June 01, 2015, bilateral MG screening mammo w CAD. May 29, 2014, bilateral MG screening mammo w CAD. There are scattered fibroglandular densities. Post surgical and post therapy scar posterior upper outer quadrant. This is decreasing is size. Additional follow up diagnostic follow up recommended. These results were verbally communicated with the patient and result sheet given to the patient on 08/23/18. ASSESSMENT: Probably benign, BI-RAD 3 RECOMMENDATION: Follow-up diagnostic mammogram of both breasts in 1 year.
== END | disposition home or self-care (01) ==
LOC: RADMAMWWP 08:19
PROVIDERS: ATTEND Family Medicine
DX: Z85.3 Personal history of malignant neoplasm of breast (principal)
CPT/HCPCS: 77066; G0279; 77062

== ENCOUNTER → 2018-11-16 | Outpatient (CLI) | payer MEDICARE ==
--- NOTE | 2018-11-16 18:08 | BD ---
EXAMINATION TYPE: Axial Bone Density DATE OF EXAM: 11/16/2018 COMPARISON: 09/01/2016 CLINICAL HISTORY: Height: 64.2 IN Weight: 201 LBS FRAX RISK QUESTIONS: History of Fracture in Adulthood: LT WRIST FX AGE 60 Secondary Osteoporosis: 3. Menopause before 45: AGE 45 PARTIAL HYST RISK FACTORS HISTORY OF: History of Wrist Fracture: YES ROMAINE When: RT WRIST AGE 10; LT WRIST AGE 60 Surgery to Wrist (left): YES When: AGE 60 Active: YES Postmenopausal woman: AGE 45 MEDICATIONS: Additional Medications: MULTI VIT, HORMONE BLOCKERS, METFORMIN, LISINOPRIL, MAGNESIUM, Additional History: UTERINE CANCER WITH RADIATION 2013; BREAST CANCER WITH RADIATION 2016 EXAM MEASUREMENTS: Bone mineral densitometry was performed using the [employer] System. Bone mineral density as measured about the Lumbar spine is: ----- L1-L4(G/cm2): 1.063 T Score Values are as follows: ----- L2: -1.4 ----- L3: -1.1 ----- L4: -0.7 ----- L1-L4: -1.0 Bone mineral density has: Increased 0.1% since study of: 09/01/2016 Bone mineral density about the R hip (g/cm2): 0.766 Bone mineral density about the L hip (g/cm2): 1.048 T Score values are as follows: -----R Neck: -2.0 -----L Neck: 0.1 -----R Total: -1.7 -----L Total: -0.1 Bone mineral density has: Decreased -4.5% since study of: 09/01/2016 IMPRESSION: Osteopenia (T Score between -2.5 and -1). There is slightly increased risk of fracture and the patient may be considered for treatment. Re-Screen 2-5 years. NOTE: T-SCORE=SD OF THE YOUNG ADULT MEAN.
== END | disposition home or self-care (01) ==
LOC: RADBDWWP 09:07
PROVIDERS: ATTEND Internal Medicine Hematology & Oncology
DX: M85.852 Other specified disorders of bone density and structure, left thigh (principal); M85.851 Other specified disorders of bone density and structure, right thigh; C50.411 Malignant neoplasm of upper-outer quadrant of right female breast; Z79.890 Hormone replacement therapy
CPT/HCPCS: 77080

== ENCOUNTER 2019-04-21 23:13 | Emergency (ER) | payer MEDICARE ==
[2019-04-21] MEDS ORDERED: HYDROmorphone 1 MG/ML 1 ML SYRINGE IM STA (23:30)
[2019-04-21] MEDS ORDERED: DEXAMETHASONE 4 MG TAB PO STA (23:30)
[2019-04-21] MEDS ORDERED: IBUPROFEN 800 MG TAB PO STA (23:30)
--- NOTE | 2019-04-21 23:32 | ED ---
Back Pain HPI - General Chief Complaint: Back Pain/Injury Stated Complaint: Back pain, vomiting Time Seen by Provider: 04/21/19 23:27 Source: patient, family, RN notes reviewed, old records reviewed Limitations: no limitations - History of Present Illness Initial Comments: This is a 60-year-old female here for evaluation of back pain. Patient having severe severe back pain. Patient states she's had similar pain before with pinched nerve. Believes this is the same she was sitting in a chair was able to school. He was immediately a pop out of place. Denies any specific trauma or loss of bowel or bladder. At the there is times the pain makes her nauseous. She took a [place] prior to arrival with no real help in her symptoms. MD Complaint: back pain -: hour(s) Similar Symptoms Previously: Yes Place: work Radiation: none Severity: severe Severity scale (1-10): 9 Quality: sharp Consistency: constant Improves With: none Worsens With: none Associated Symptoms: denies other symptoms - Related Data Home Medications Medication Instructions Recorded Confirmed Magnesium 200 mg PO DAILY 06/30/16 06/22/18 Multivitamins, Thera [Multivitamin 1 tab PO DAILY 06/30/16 06/22/18 (formulary)] metFORMIN HCL [Glucophage Xr] 500 mg PO BID 06/30/16 06/22/18 traMADol HCL [Ultram] 50 mg PO TID PRN 06/30/16 06/22/18 Acetaminophen-Codeine 300-30mg 1 tab PO TID PRN 06/17/18 06/22/18 [Tylenol w/codeine #3] Exemestane [Aromasin] 25 mg PO DAILY 06/17/18 06/22/18 Lisinopril [Zestril] 2.5 mg PO DAILY@1800 06/17/18 06/23/18 Previous Rx's Medication Instructions Recorded Aspirin 325 mg PO BID #60 tab 06/23/18 HYDROcodone/APAP 5-325MG [[place] 1 - 2 tab PO Q6HR PRN #56 tab 06/23/18 5-325] Sennosides [Senokot] 1 tab PO BID #60 tablet 06/23/18 Cephalexin [Keflex] 500 mg PO Q8HR #42 cap 04/22/19 Allergies Allergy/AdvReac Type Severity Reaction Status Date / Time adhesive Allergy Rash/Hives Verified 04/21/19 23:20 Penicillins Allergy Anaphylaxis Verified 04/21/19 23:20 Review of Systems ROS Statement: Those systems with pertinent positive or pertinent negative responses have been documented in the HPI. ROS Other: All systems not noted in ROS Statement are negative. Past Medical History Past Medical History: Cancer, Diabetes Mellitus, Osteoarthritis (OA) Additional Past Medical History / Comment(s): back pain,IBS, basal cell on face, uterine cancer History of Any Multi-Drug Resistant Organisms: None Reported Past Surgical History: Cholecystectomy, Hysterectomy, Orthopedic Surgery Additional Past Surgical History / Comment(s): khang arms,carpal tunnel, shatterd left hand Past Anesthesia/Blood Transfusion Reactions: Postoperative Nausea & Vomiting (PONV) Past Psychological History: No Psychological Hx Reported Past Drug Use History: None Reported - Past Family History Brother(s) Family Medical History: Cancer Additional Family Medical History / Comment(s): 1st brother-pancreatic, 2nd brother-bladder, skin Sister(s) Family Medical History: Deep Vein Thrombosis (DVT) General Exam Limitations: no limitations General appearance: alert, in no apparent distress Head exam: Present: atraumatic, normocephalic, normal inspection Eye exam: Present: normal appearance, PERRL, EOMI. Absent: scleral icterus, conjunctival injection, periorbital swelling ENT exam: Present: normal exam, mucous membranes moist Neck exam: Present: normal inspection. Absent: tenderness, meningismus, lymphadenopathy Respiratory exam: Present: normal lung sounds bilaterally. Absent: respiratory distress, wheezes, rales, rhonchi, stridor Cardiovascular Exam: Present: regular rate, normal rhythm, normal heart sounds. Absent: systolic murmur, diastolic murmur, rubs, gallop, clicks GI/Abdominal exam: Present: soft, normal bowel sounds. Absent: distended, tenderness, guarding, rebound, rigid Extremities exam: Present: normal inspection, full ROM, normal capillary refill. Absent: tenderness, pedal edema, joint swelling, calf tenderness Back exam: Present: normal inspection Neurological exam: Present: alert, oriented X3, CN II-XII intact Psychiatric exam: Present: normal affect, normal mood Skin exam: Present: warm, dry, intact, normal color. Absent: rash Course Vital Signs 04/21/19 04/21/19 04/22/19 23:16 23:42 00:32 Temperature 97.7 F Pulse Rate 73 78 106 H Respiratory 22 18 14 Rate Blood Pressure 173/82 194/102 155/75 O2 Sat by Pulse 98 98 98 Oximetry - Reevaluation(s) Reevaluation #1: 04/21/19 23:47 Medical records reviewed Reevaluation #2: 04/21/19 23:47 patient has adequate pain control Reevaluation #3: 04/22/19 00:33 Patient is adequate pain control right now 04/22/19 00:33 Patient monitored for reaction to medication Reevaluation #4: 04/22/19 00:34 Patient family informed of likely passed kidney stone with urinary tract infection, patient is using to be able to urinate that she states she is having uncontrolled other than his urinary herself multiple times. Medical Decision Making - Medical Decision Making 68-year-old year with acute onset of back pain. Patient appears to have recent passed kidney stone on CT abdomen and pelvis. Patient is unable to give urine culture for possible pyelonephritis and patient can be discharged - Radiology Data Radiology results: report reviewed (CT abdomen and pelvis shows left hydronephrosis secondary to infection versus recently passed kidney stone), image reviewed Disposition Clinical Impression: Left renal stone, Pyelonephritis of left kidney Narrative: Passed Kidney Stone Disposition: HOME SELF-CARE Condition: Good Instructions (If sedation given, give patient instructions): Kidney Infection (ED), Kidney Stones (ED) Prescriptions: Cephalexin [Keflex] 500 mg PO Q8HR #42 cap Is patient prescribed a controlled substance at d/c from ED?: No Referrals: Monica Hill DO [Primary Care Provider] - 1-2 days
--- NOTE | 2019-04-22 00:13 | CT ---
EXAMINATION TYPE: CT abdomen pelvis wo con DATE OF EXAM: 04/21/2019 COMPARISON: None HISTORY: left abd pain CT DLP: 1081.4 mGycm Automated exposure control for dose reduction was used. Multiple axial sections were obtained from the diaphragm to the floor the pelvis with no contrast. There is mild subsegmental atelectasis at the lung bases. Heart appears normal. There is no pleural e ffusion. There are clips from cholecystectomy. Liver spleen pancreas stomach appear normal. Bile ducts are not dilated. There is no adrenal mass. There is left-sided hydronephrosis and perinephric edema. Left ureter does not appear significantly dilated. I see no definite ureteral calculus. There are phleboliths in the p irving on the left side. There is some fullness of the right renal pelvis. Right ureter is not dilated . There is no retroperitoneal adenopathy. There is no mesenteric edema. Bladder distends smoothly. There is no free fluid in the pelvis. There is no inguinal hernia. There is no sign of a bowel obstruction. There is no evidence of thickened renata endix. There is no ascites or free air. Lumbar vertebra show fairly normal alignment. There is a few millimeter anterior subluxation of L4 in relation L5. There is no spondylolysis. There is no lumbar compression fracture. Bony pelvis appears intact. IMPRESSION: Left-sided hydronephrosis and perinephric edema. No obstructing calculus seen. This could relate to r ecently passed stone or nonopaque stone. I would also consider pyelonephritis. There is some fullness right renal pelvis but no evidence of obstruction. Calyces are not dilated on the right side.
[2019-04-22] MEDS ORDERED: CEPHALEXIN 500 MG CAP PO STA (00:31)
[2019-04-22] MEDS ORDERED: cefTRIAXone 250 MG VIAL IM STA (00:31)
[2019-04-22] MEDS ORDERED: CEPHALEXIN 500MG STARTER PACK 4 CAP BTL PO STA (00:31)
[2019-04-22] MEDS ORDERED: ACET/COD 300 MG/30 MG STARTER PACK 6 TAB BTL PO STA (00:31)
[2019-04-22] MEDS ORDERED: LIDOCAINE 1% INJ 10MG/ML (20 ML MDV) IM ONE (00:39)
[2019-04-22 02:46] VITALS: BP 112/78; PULSE 98; RESP 18; TEMP 98.6
== END 2019-04-22 02:45 | disposition home or self-care (01) ==
LOC: EC 23:13
DX: N13.6 Pyonephrosis (principal); E11.9 Type 2 diabetes mellitus without complications; Z85.42 Personal history of malignant neoplasm of other parts of uterus; Z85.828 Personal history of other malignant neoplasm of skin; Z79.84 Long term (current) use of oral hypoglycemic drugs; Z79.899 Other long term (current) drug therapy; Z88.0 Allergy status to penicillin; Z91.048 Other nonmedicinal substance allergy status; Z90.49 Acquired absence of other specified parts of digestive tract; Z90.710 Acquired absence of both cervix and uterus
CPT/HCPCS: 74176; 99284; 96372 ×3; J8540; J2001; J0696; J1170

== ENCOUNTER → 2019-06-27 | Outpatient (CLI) | payer MEDICARE ==
[~2019-06-27] MED LIST changes: -ACETAMINOPHEN TAB 500 MG TAB PO ONE; -CLINDAMYCIN 900 MG in DEXTROSE 5% IN WATER 50 ML IVPB ONE; -DEXAMETHASONE SOD PHOSPHATE 10 MG/ML 1 ML VIAL IV ONE; +FUROSEMIDE 10 MG/ML 2 ML VIAL IV ONE; -HYDROmorphone 0.5 MG/0.5 ML SYRINGE IVP PRN; -MELOXICAM 7.5 MG TAB PO ONE; -MIDAZOLAM (PF) 2 MG/2 ML VIAL IV PRN; -ONDANSETRON 4 MG/2 ML VIAL IVP ONE; -ROPIVACAINE 246.25 MG, EPINEPHrine 0.5 MG, KETOROLAC 30 MG, cloNIDine HCL/PF 80 MCG, WA... MISCELLANE ONE; -TRANEXAMIC ACID 1,000 MG in SODIUM CHLORIDE 0.9% 100 ML IVPB ONE
--- NOTE | 2019-06-27 15:14 | NM ---
EXAMINATION TYPE: NM lasix renogram DATE OF EXAM: 06/27/2019 COMPARISON: CT 04/21/2019 HISTORY: Left hydronephrosis, Q 62.11 Following administration of 10.3 mCi Tc 99m MAG3 with 20mg Lasix. Immediate images post injection FINDINGS: Time activity curves were generated by the computer software. Left: 43 %. Right: 57 %. Max renal flow left: 13 minutes. Max renal flow right: 57 minutes. Satisfactory accumulation of radiotracer within both renal collecting systems. After the administrati on of Lasix, there is prompt excretion from both collecting systems. Mild asymmetric persistent activ ity within the left collecting system as compared to the right on delayed images. T 1/2 left: Delayed yellow limited acquisition T 1/2 right: 23 minutes. IMPRESSION: Suggestion of mild functional left-sided hydronephrosis on delayed images.
== END | disposition home or self-care (01) ==
LOC: RADNMMAIN 12:44
PROVIDERS: ATTEND Urology
DX: Q62.11 Congenital occlusion of ureteropelvic junction (principal); N13.30 Unspecified hydronephrosis
CPT/HCPCS: 78708; A9562

== ENCOUNTER → 2019-11-04 | Outpatient (CLI) | payer MEDICARE ==
--- NOTE | 2019-11-04 11:56 | MM ---
Reason for exam: additional evaluation requested from prior study. Last mammogram was performed 1 year and 2 months ago. History: Patient is postmenopausal, has history of breast cancer at age 65, has history of endometrial cancer at age 63, and history of other cancer. Family history of breast cancer in maternal grandmother and breast cancer in maternal cousin at age 40. Malignant MG pre op needle loc RT of the right breast, July 01, 2016. Malignant MG stereo VAD BX RT of the right breast, June 16, 2016. US discontinued breast bx RT of the right breast, June 16, 2016. Radiation therapy of the right breast, 2017. Took hormonal contraceptives for 10 years. Taking antineoplastic for 3 years beginning at age 65. Physical Findings: Nurse did not find any significant physical abnormalities on exam. MG 3D Diag Mammo W/Cad ROMAINE Bilateral CC and MLO view(s) were taken. XCCL view(s) were taken of the right breast. Prior study comparison: August 23, 2018, bilateral MG 3d diag mammo w/cad ROMAINE. June 12, 2017, bilateral MG 3d diag mammo w/cad ROMAINE. Post surgical chanes right upper outer quadrant. No significant new findings when compared with previous films. These results were verbally communicated with the patient and result sheet given to the patient on 11/04/19. ASSESSMENT: Benign, BI-RAD 2 RECOMMENDATION: Follow-up diagnostic mammogram of both breasts in 1 year.
== END | disposition home or self-care (01) ==
LOC: RADMAMWWP 11:03
PROVIDERS: ATTEND Family Medicine
DX: R92.8 Other abnormal and inconclusive findings on diagnostic imaging of breast (principal)
CPT/HCPCS: 77066; G0279; 77062

== ENCOUNTER → 2020-11-05 | Outpatient (CLI) | payer MEDICARE ==
--- NOTE | 2020-11-05 14:16 | MM ---
Reason for exam: additional evaluation requested from prior study. Last mammogram was performed 1 year ago. History: Patient is postmenopausal, has history of breast cancer at age 65, has history of endometrial cancer at age 63, and history of other cancer. Family history of breast cancer in maternal grandmother and breast cancer in maternal cousin at age 40. Malignant MG pre op needle loc RT of the right breast, July 01, 2016. Malignant MG stereo VAD BX RT of the right breast, June 16, 2016. US discontinued breast bx RT of the right breast, June 16, 2016. Radiation therapy of the right breast, 2017. Took hormonal contraceptives for 10 years. Taking antineoplastic for 4 years beginning at age 65. Physical Findings: Nurse did not find any significant physical abnormalities on exam. MG 3D Diag Mammo W/Cad ROMAINE Bilateral CC and MLO view(s) were taken. Prior study comparison: November 04, 2019, bilateral MG 3d diag mammo w/cad ROMAINE. August 23, 2018, bilateral MG 3d diag mammo w/cad ROMAINE. There are scattered fibroglandular densities. Stable benign calcifications. Stable post lumpectomy changes right breast. No significant new findings when compared with previous films. These results were verbally communicated with the patient and result sheet given to the patient on 11/05/20. ASSESSMENT: Benign, BI-RAD 2 RECOMMENDATION: Follow-up diagnostic mammogram of both breasts in 1 year.
== END | disposition home or self-care (01) ==
LOC: RADMAMWWP 13:04
PROVIDERS: ATTEND Family Medicine
DX: R92.8 Other abnormal and inconclusive findings on diagnostic imaging of breast (principal)
CPT/HCPCS: 77066; G0279; 77062

== ENCOUNTER → 2021-01-30 | Outpatient (CLI) | payer MEDICARE ==
--- NOTE | 2021-01-30 10:25 | CT ---
EXAMINATION TYPE: CT abdomen pelvis wo con DATE OF EXAM: 01/30/2021 HISTORY: bilateral hydronephrosis prior abnormal CT CT DLP: 1107 mGycm. Automated Exposure Control for Dose Reduction was Utilized. TECHNIQUE: CT scan of the abdomen and pelvis is performed without oral or IV contrast. COMPARISON: Prior CT abdomen and pelvis April 21, 2019. Nuclear medicine renogram June 27, 2019. FINDINGS: Within the limitations of a non-contrast study, the following observations are made. LUNG BASES: Mild parenchymal scarring in the lung bases redemonstrated. LIVER/GB: Cholecystectomy clips are redemonstrated. PANCREAS: No significant abnormality is seen. SPLEEN: No significant abnormality is seen. ADRENALS: Stable slight asymmetric thickening to left adrenal gland favoring benign lipid rich hyperp lasia. KIDNEYS: Persistent severe left-sided hydronephrosis with no left-sided hydroureter up to level of pe lvic brim where it becomes less well seen adjacent to remnant left ovary. There is visualized distal left ureter without dilatation or obstructing stone. Stable fullness right renal pelvis without calyc eal dilatation consistent with extrarenal pelvis. No right-sided hydroureter. No renal calculi seen b ilaterally. BOWEL: Normal-appearing appendix from cecum. No Suspicious bowel dilatation.. GENITAL ORGANS: Uterus surgically absent. Normal or abnormal right ovary not seen. Stable suspected r emnant left ovary axial image 120. LYMPH NODES: No greater than 1cm abdominal or pelvic lymph nodes are appreciated. OSSEOUS STRUCTURES: Moderate to severe axial joint space loss in both hips with mild to moderate spur ring greater on the left redemonstrated. Mild disc space narrowing and spurring L2-L3 level redemonst rated. OTHER: Small fat-containing umbilical hernia redemonstrated. IMPRESSION: Stable severe left-sided hydronephrosis. New hydroureter current study but no obstructing calculus or mass clearly seen. Nuclear medicine evaluation showed only mild asymmetry in function. I suspect there is some adhesion or partial obstruction related to close proximity to the remnant left ovary.
== END | disposition home or self-care (01) ==
LOC: RADCTMAIN 08:04
PROVIDERS: ATTEND Urology
DX: N13.30 Unspecified hydronephrosis (principal)
CPT/HCPCS: 74176

== ENCOUNTER → 2021-03-07 | Outpatient (CLI) | payer MEDICARE ==
--- NOTE | 2021-03-07 11:06 | CT ---
EXAMINATION TYPE: CT urogram wo/w con DATE OF EXAM: 03/07/2021 HISTORY: Unspecified Hydronephrosis CT DLP: 3662.2mGycm Automated Exposure Control for Dose Reduction was Utilized. CONTRAST: CT scan of the abdomen and pelvis is performed without oral and without and with IV Contrast, patient injected with 80 mL of Isovue 300. Urogram protocol with 3-D reconstructed images created on an [employer] workstation and reviewed. COMPARISON: Most recent CT January 30, 2021 and older studies FINDINGS: KUB: Noncontrast images show no renal calculi bilaterally. Postcontrast images show symmetric medullary uptake with left-sided delayed excretion. There is persi stent prominence of the right renal pelvis without calyceal dilatation consistent with extrarenal pel vis. There is severe left-sided hydronephrosis redemonstrated. There is moderate to severe hydrourete r. Findings show progression from April 21, 2019 CT intrauterine degree of hydroureter is more promine nt from most recent CT January 30, 2021. There is abrupt transition at left pelvic soft tissue mass measuring 2.8 x 2.5 cm axial image 69 with poor visualization of the ureter at this level. Ureter is seen distal to this without dilatation or calculus. Bladder shows no intraluminal mass or calculus. LUNG BASES: Mild to moderate bibasilar atelectasis and/or scarring is redemonstrated. LIVER/GB: Cholecystectomy clips are redemonstrated. Subcentimeter low dense lesion periphery right he patic lobe series 3 image 17 is too small to further characterize but stable and presumed benign. PANCREAS: Mild generalized fat replaced atrophy. SPLEEN: No significant abnormality is seen. ADRENALS: No significant abnormality is seen. BOWEL: A few sigmoid colonic diverticula. No CT evidence for acute diverticulitis. No suspicious smal l or large bowel dilatation. UTERUS/ADNEXA: Uterus is surgically absent. Remnant right ovary not well seen. LYMPH NODES: No greater than 1cm abdominal or pelvic lymph nodes are appreciated. OSSEOUS STRUCTURES: Multilevel facet arthropathy in the lower lumbar spine. OTHER: Mild calcified plaque of the aorta extends into branch vessels. IMPRESSION: Severe left-sided hydronephrosis with delayed excretion shows continued progression from April 2019 study with abrupt cut off at the left pelvis at site of remnant ovary or possible abnormal mass or lymph node if the left ovary is surgically absent. Correlate clinically. Suspect progressive severe underlying adhesions causing obstruction. Surgical exploration may be warranted.
== END | disposition home or self-care (01) ==
LOC: RADCTMAIN 07:58
PROVIDERS: ATTEND Urology
DX: N13.30 Unspecified hydronephrosis (principal)
CPT/HCPCS: 82565; 84520; 74178; 36415; 74400; Q9967

== ENCOUNTER → 2021-04-01 | Outpatient (CLI) | payer MEDICARE ==
--- NOTE | 2021-04-01 12:37 | BD ---
EXAMINATION TYPE: Axial Bone Density DATE OF EXAM: 04/01/2021 COMPARISON: 11/16/2018 CLINICAL HISTORY: Postmenopausal screening Height: 63.7 IN Weight: 191 LBS FRAX RISK QUESTIONS: History of Fracture in Adulthood: LT WRIST FX 2005 Secondary Osteoporosis: 3. Menopause before 45: AGE 45; PARTIAL HYST AGE 63 RISK FACTORS HISTORY OF: History of Wrist Fracture: LT WRIST 2006; RT WRIST AGE 10 Surgery to Wrist (left): LT WRIST 2006 Active: YES Postmenopausal woman: AGE 45; PARTIAL HYST AGE 63 Take estrogen and/or progesterone medications: NOT NOW How long: CONTROL 10 YEARS MEDICATIONS: Additional Medications: MULTI VIT, METFORMIN, LISINOPRIL, EXEMESTANE, ANTIBIOTIC Additional History: BREAST CANCER WITH RADIATION; UTERINE CANCER WITH RADIATION EXAM MEASUREMENTS: Bone mineral densitometry was performed using the [employer] System. Bone mineral density as measured about the Lumbar spine is: ----- L1-L4(G/cm2): 0.980 T Score Values are as follows: ----- L2: -1.8 ----- L3: -1.5 ----- L4: -1.6 ----- L1-L4: -1.7 Bone mineral density has: Decreased -6.4% since study of: 11/16/2018 Bone mineral density about the R hip (g/cm2): 0.743 Bone mineral density about the L hip (g/cm2): 1.040 T Score values are as follows: -----R Neck: -1.8 -----L Neck: 0.0 -----R Total: -1.8 -----L Total: -0.2 Bone mineral density has: Decreased -1.9% since study of: 11/16/2018 IMPRESSION: Osteopenia (T Score between -2.5 and -1). There is slightly increased risk of fracture and the patient may be considered for treatment. Re-Screen 2-5 years. NOTE: T-SCORE=SD OF THE YOUNG ADULT MEAN.
== END | disposition home or self-care (01) ==
LOC: RADBDWWP 10:12
PROVIDERS: ATTEND Internal Medicine Hematology & Oncology
DX: M85.80 Other specified disorders of bone density and structure, unspecified site (principal); Z79.890 Hormone replacement therapy; Z03.89 Encounter for observation for other suspected diseases and conditions ruled out; Z78.0 Asymptomatic menopausal state
CPT/HCPCS: 77080

== ENCOUNTER → 2021-04-11 | Outpatient (CLI) | payer MEDICARE ==
[2021-04-11 10:38] LABS: Amorphous Sediment,Urine Rare /hpf; Appearance,Urine Clear (Clear); Bilirubin,Urine Negative (Negative); Blood,Urine Negative (Negative); Color,Urine Yellow; Glucose,Urine (UA) Negative (Negative); Ketones,Urine Negative (Negative); Leukocyte Esterase,Urine Trace (Negative); Mucus,Urine Rare /hpf; Nitrite,Urine Negative (Negative); Protein,Urine 1+ (Negative); RBC,Urine 4 /hpf (0-5); Specific Gravity,Urine 1.018 (1.001-1.035); Urobilinogen,Urine <2.0 mg/dL (<2.0); WBC,Urine 4 /hpf (0-5)
== END | disposition home or self-care (01) ==
LOC: LABPAT 09:02
PROVIDERS: ATTEND Urology
DX: Z01.812 Encounter for preprocedural laboratory examination (principal); D41.22 Neoplasm of uncertain behavior of left ureter; E10.9 Type 1 diabetes mellitus without complications
CPT/HCPCS: 81001; 87086; 93005

== ENCOUNTER 2021-04-18 12:00 | Inpatient (IN) | payer MEDICARE ==
[2021-04-15 13:52] VITALS: BMI 32.2
--- NOTE | 2021-04-18 08:02 | P.HPIHPCON ---
History of Present Illness H&P Date: 04/18/21 Chief Complaint: left hydronephrosis, ureteral mass This is a 70-year-old female history of left-sided hydronephrosis, secondary to distal ureteral obstruction. She underwent a CT urogram showed a severely dilated ureter down to the distal ureter. Underwent a retrograde pyelogram in the OR which showed a filling defect in the distal ureter with severe dilation proximal to that. The filling defect measured approximately 2 cm, and was concerning for a distal ureteral tumor. Cytology was obtained on that side which came back as atypical. Attempted ureteroscopy was unsuccessful due to complete obstruction of the ureter. Subsequently a ureteral stent was placed. Of note there was no additional filling defect along the remaining course of the ureter or in the renal pelvis. There was evidence of parenchymal loss secondary to the obstruction. Discussed with her given the finding the option of distal ureterectomy and a ureteral reimplant. Discussed with her the risk of surgery which includes but not limited to bleeding, infection, injury to nearby organ, potential of needing additional procedures, anastomosis breakdown. Discussed if this comes back as malignancy that she will need a close surveillance of the remaining ureter and the renal pelvis. Discussed also with her the potential of doing a nephroureterectomy if not able to do a reimplant. Discussed also the potential of psoas hitch and Boari flap. She understood all the risk and agreed to proceed Consent for Procedure: I have explained the operation/procedure to the patient, including the risks, benefits, side effects, alternative therapies (including not receiving the proposed treatment or service), the likelihood of the patient achieving his/her goals, and potential recuperation problems for the procedure/sedation/analgesia, as well as any blood products, if indicated. I also explained to the patient the risks, benefits and side effects of the alternatives, as well as the risks related to not receiving the proposed procedure, care, treatment, or services. 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 History of Any Multi-Drug Resistant Organisms: None Reported Past Surgical History: Cholecystectomy, Hysterectomy, Joint Replacement, Orthopedic Surgery Additional Past Surgical History / Comment(s): Bilateral arm carpal tunnel, shatterd left hand, ureteral stent, right knee replacement. Past Anesthesia/Blood Transfusion Reactions: Postoperative Nausea & Vomiting (PO NV) Past Psychological History: No Psychological Hx Reported Smoking Status: Former smoker Past Alcohol Use History: Occasional Additional Past Alcohol Use History / Comment(s): Smoked 30 years, 1 ppd, quit 2004. Past Drug Use History: None Reported Additional Drug Use History / Comment(s): Occasional gummies. - Past Family History Brother(s) Family Medical History: Cancer Additional Family Medical History / Comment(s): 1st brother-pancreatic cancer, 2nd brother-bladder and skin cancer. Sister(s) Family Medical History: Deep Vein Thrombosis (DVT) Medications and Allergies Home Medications Medication Instructions Recorded Confirmed Type Multivitamins, Thera [Multivitamin 1 tab PO DAILY 06/30/16 04/15/21 History (formulary)] metFORMIN HCL [Glucophage Xr] 1,000 mg PO AC-SUPPER 06/30/16 04/15/21 History Exemestane [Aromasin] 25 mg PO AC-SUPPER 06/17/18 04/15/21 History lisinopriL [Zestril] 2.5 mg PO AC-SUPPER 06/17/18 04/15/21 History Ibuprofen [Motrin] 800 mg PO Q8H PRN 04/15/21 04/15/21 History Magnesium Citrate 250 mg PO DAILY 04/15/21 04/15/21 History Potassium Gluconate [Potassium 99 mg PO DAILY 04/15/21 04/15/21 History Gluconate ER] traMADol HCL 50 mg PO TID PRN 04/15/21 04/15/21 History Allergies Allergy/AdvReac Type Severity Reaction Status Date / Time adhesive Allergy Rash/Hives Verified 04/15/21 13:31 Penicillins Allergy Anaphylaxis Verified 04/15/21 13:31 Surgical - Exam - General no distress, no pain - Eyes normal ocular movement, no pale - ENT normal nares, normal mucosa - Respiratory normal expansion, normal respiratory effort - Abdomen Abdomen: soft, non tender - Psychiatric oriented to time, oriented to person, oriented to place Assessment and Plan Assessment: OR for robotic left distal ureterectomy, and ureteral reimplant
[~2021-04-18 12:00] MED LIST changes: +CLINDAMYCIN 600 MG in DEXTROSE 5% IN WATER 50 ML IVPB PRN; -FUROSEMIDE 10 MG/ML 2 ML VIAL IV ONE; +GENTAMICIN 120 MG in SODIUM CHLORIDE 0.9% 100 ML IVPB PRN; +HEPARIN SODIUM,PORCINE/PF 5,000 UNIT/0.5 ML SYRINGE SQ PRN; +HYDROmorphone 0.5 MG/0.5 ML SYRINGE IVP PRN; +LIDOCAINE 1% (10MG/ML) FOR IV START INTRADERMA PRN; +MIDAZOLAM 2 MG/2 ML VIAL IV PRN
[2021-04-18 13:01] LABS: Glucose,Whole Blood 102 mg/dL (75-99)
[2021-04-18] MEDS: LACTATED RINGERS 1,000 ML IV SCH (13:04)
[2021-04-18] MEDS ORDERED: LIDOCAINE 1% (10MG/ML) FOR IV START INTRADERMA ONE (13:06)
[2021-04-18] MEDS: DEXAMETHASONE SOD PHOSPHATE 4 MG/ML 1 ML VIAL IV ONE ×2 (13:16→22:21)
[2021-04-18] MEDS: ONDANSETRON 4 MG/2 ML VIAL IVP ONE ×2 (13:16→22:21)
[2021-04-18] MEDS ORDERED: SUCCINYLCHOLINE CHLORIDE 100 MG/5 ML SYR IV ONE (16:24)
[2021-04-18] MEDS ORDERED: DEXAMETHASONE SOD PHOSPHATE 4 MG/ML 1 ML VIAL ONE (16:24)
[2021-04-18] MEDS ORDERED: NEOSTIGMINE 1 MG/ML 10 ML VIAL ONE (16:24)
[2021-04-18] MEDS ORDERED: SODIUM CHLORIDE 0.9% (PF) 10 ML VIAL ONE (16:24)
[2021-04-18] MEDS ORDERED: GLYCOPYRROLATE 0.2 MG/ML 2 ML VIAL ONE (16:24)
[2021-04-18] MEDS ORDERED: LIDOCAINE 1% INJ 10MG/ML (20 ML MDV) ONE (16:24)
[2021-04-18] MEDS ORDERED: HYDROmorphone (PF) 1 MG/ML ONE (16:24)
[2021-04-18] MEDS ORDERED: ROCURONIUM 10 MG/ML (5 ML VIAL) IV ONE (16:24)
[2021-04-18] MEDS ORDERED: ROPIVACAINE 5 MG/ML 30 ML VIAL ONE (16:24)
[2021-04-18] MEDS ORDERED: fentaNYL (PF) 50 MCG/ML 2 ML AMP ONE (16:24)
[2021-04-18] MEDS ORDERED: MIDAZOLAM 2 MG/2 ML VIAL ONE (16:24)
[2021-04-18] MEDS ORDERED: PROPOFOL 10 MG/ML 20 ML VIAL IV ONE (16:24)
[2021-04-18] MEDS ORDERED: LABETALOL 5 MG/ML VIAL MDV ONE (16:24)
[2021-04-18] MEDS ORDERED: LACTATED RINGERS 1,000 ML IV ONE (17:12)
[2021-04-18] MEDS ORDERED: BUPIVACAIN-EPI 0.25%-1:200,000 30 ML VIAL SQ ONE (17:33)
--- NOTE | 2021-04-18 18:53 | P.OP ---
Date of Procedure: 04/18/21 Preoperative Diagnosis: Left ureteral tumor, left-sided hydronephrosis Postoperative Diagnosis: Same Procedure(s) Performed: Robotic-assisted laparoscopic distal ureterectomy, and ureteral reimplant Anesthesia: LUCIE Surgeon: Alen Kim Saturator Operator #1: Candice Doyle Estimated Blood Loss (ml): 25 Pathology: other (left distal ureter, left pelvic sidewall mass) Condition: stable Disposition: PACU Indications for Procedure: This is a 70-year-old female history of left-sided hydronephrosis, secondary to distal ureteral obstruction. She underwent a CT urogram showed a severely dilated ureter down to the distal ureter. Underwent a retrograde pyelogram in the OR which showed a filling defect in the distal ureter with severe dilation proximal to that. The filling defect measured approximately 2 cm, and was concerning for a distal ureteral tumor. Cytology was obtained on that side which came back as atypical. Attempted ureteroscopy was unsuccessful due to complete obstruction of the ureter. Subsequently a ureteral stent was placed. Of note there was no additional filling defect along the remaining course of the ureter or in the renal pelvis. There was evidence of parenchymal loss secondary to the obstruction. Discussed with her given the finding the option of distal ureterectomy and a ureteral reimplant. Discussed with her the risk of surgery which includes but not limited to bleeding, infection, injury to nearby organ, potential of needing additional procedures, anastomosis breakdown. Discussed if this comes back as malignancy that she will need a close surveillance of the remaining ureter and the renal pelvis. Discussed also with her the potential of doing a nephroureterectomy if not able to do a reimplant. Discussed also the potential of psoas hitch and Boari flap. She understood all the risk and agreed to proceed Operative Findings: Hard mass adherent to the left distal ureter, invading into the left sidewall Description of Procedure: After preoperative antibiotics were started, the patient was taken to the operating room. Anesthesia was induced and the patient was placed in a supine position with adequate padding of the pressure points, shoulders, back, legs and arms. He was then prepped and draped in the standard fashion. A critical pause was performed using two patient identifiers. A 16F lim catheter was placed to gravity drainage. A pneumoperitoneum was obtained using a Veress needle, after pneumoperitoneum was obtained a 8 mm camera port was placed. Under direct vision a 8mm robotic ports was placed lateral to each rectus slightly below the camera port. The left iliac fossa 8mm port was placed. The right assistant auto center manager right iliac fossa 12mm port and right paramedian 5mm portwere placed. After the patient was placed in the trendelenberg position, the robot was then docked to the 8mm robotic ports and then each robotic arm and tower was checked in relation to the patient's legs and hands to avoid inadvertent compression. The peritoneal cavity was inspected. Adhesions were taken down along the left lower quadrant next the ureter was identified along the left side as it crosses over the iliac, this was mobilized. In the area of the ureter that was identified as being abnormal on the CAT scan, there was a hard mass, but was seen to be extending into the pelvic sidewall. The area of the mass was dissected medially and laterally, however in in the part that was extending into the sidewall we had to cut through firm to hard masslike lesion. Eventually the ureter was dissected all the way down to the bladder. The ureter and the ureteral orifice was then excised. The ureter was then cut proximal to the abnormal area and the entire ureter with the abnormal area was sent for pathology as primary specimen. Attention was then directed to the hard part of the mass lesion that was extending into the lateral pelvic sidewall. This was then excised using monopolar scissors and fenestrated bipolar and sent as a secondary specimen. We attempted to do the ureteral bladder anastomosis at the site of the bladder cuff, there was too great of a distance performed that. Most decision was made to anastomose the ureter more anteriorly along the bladder. The bladder was mobilized. Next the bladder was filled using normal saline. An incision was made along the anterior bladder wall. At this time the ureter was able to reach the bladder under no tension. Next the bladder was pexied to the peritoneum of the pouch of Senthil using 20V lock. Next the ureteral-bladder anastomosis was made using 40 the locking running fashion. The stent that was present initially was kept in situ. Next the anastomosis was tested and there was no evidence of leak. Surgicel was applied to the left pelvic sidewall. Next a 10-Prydeinig flat ZANE was placed along the left lower quadrant. Next a specimen was removed through the assistant auto center manager port incision. All ports were closed with a subcuticular 4-0 monocryl and Dermabond. Sponge, instrument, and needle counts were correct at the end of the case x2. The patient tolerated the surgery well and without complication. He awoke without difficulty and was taken to the recovery room in stable condition
[2021-04-18] MEDS: SODIUM CHLORIDE 0.9% 1,000 ML IV SCH (22:21)
[2021-04-18] MEDS: metFORMIN 500 MG TAB PO SCH (22:22)
[2021-04-18] MEDS: KETOROLAC 30 MG/ML 1 ML VIAL IVP SCH ×2 (23:33→23:41)
[2021-04-18] MEDS: HEPARIN SODIUM,PORCINE/PF 5,000 UNIT/0.5 ML SYRINGE SQ SCH (23:35)
[2021-04-19 02:12] VITALS: RESP 16; TEMP 97.7
[2021-04-19] MEDS: KETOROLAC 30 MG/ML 1 ML VIAL IVP SCH ×2 (05:37→11:07)
[2021-04-19] MEDS: HYDROcodone/APAP 5-325MG 1 EACH TAB PO PRN ×2 (05:40→09:00)
[2021-04-19 06:48] LABS: Glucose,Whole Blood 191 mg/dL (75-99)
[2021-04-19] MEDS: LACTATED RINGERS 1,000 ML IV SCH (06:49)
[2021-04-19] MEDS: metFORMIN 500 MG TAB PO SCH (06:55)
[2021-04-19] MEDS: HEPARIN SODIUM,PORCINE/PF 5,000 UNIT/0.5 ML SYRINGE SQ SCH (06:55)
[2021-04-19] MEDS: SODIUM CHLORIDE 0.9% 1,000 ML IV SCH (06:56)
--- NOTE | 2021-04-19 07:58 | P.DS ---
Providers Date of admission: 04/18/21 12:00 Expected date of discharge: 04/19/21 Attending physician: Alen Kim MD Primary care physician: Monica Hill Hospital Course: On the day of admission, the patient underwent robotic-assisted laparoscopic left distal ureterectomy with ureteral reimplant. Intraoperatively, the ureter was noted to be adherent to the pelvic sidewall, and she was also noted to have a small capacity bladder. The perioperative course was unremarkable. She remained afebrile with stable vital signs. On the first postoperative day, she reported mild incisional discomfort but otherwise felt well. She denied chest pain, dyspnea, and nausea. On examination, the abdomen was soft and nondistended. The incisions were clean, dry, and intact. The Miller catheter was draining blood-tinged urine. ZANE drainage was minimal. Procedures: Robotic-assisted laparoscopic left distal ureterectomy with ureteral reimplant on 04/18/2021 Patient Condition at Discharge: Good Plan - Discharge Summary Discharge Rx Participant: Yes New Discharge Prescriptions: New Ketorolac [Toradol] 10 mg PO Q6HR PRN #15 tab PRN Reason: Pain Ciprofloxacin HCl [Cipro] 250 mg PO Q12HR 3 Days #6 tab No Action Multivitamins, Thera [Multivitamin (formulary)] 1 tab PO DAILY metFORMIN HCL [Glucophage Xr] 1,000 mg PO AC-SUPPER lisinopriL [Zestril] 2.5 mg PO AC-SUPPER Exemestane [Aromasin] 25 mg PO AC-SUPPER Magnesium Citrate 250 mg PO DAILY Potassium Gluconate [Potassium Gluconate ER] 99 mg PO DAILY Ibuprofen [Motrin] 800 mg PO Q8H PRN PRN Reason: Pain traMADol HCL 50 mg PO TID PRN PRN Reason: pain Discharge Medication List Multivitamins, Thera [Multivitamin (formulary)] 1 tab PO DAILY 06/30/16 [History] metFORMIN HCL [Glucophage Xr] 1,000 mg PO AC-SUPPER 06/30/16 [History] Exemestane [Aromasin] 25 mg PO AC-SUPPER 06/17/18 [History] lisinopriL [Zestril] 2.5 mg PO AC-SUPPER 06/17/18 [History] Ibuprofen [Motrin] 800 mg PO Q8H PRN 04/15/21 [History] Magnesium Citrate 250 mg PO DAILY 04/15/21 [History] Potassium Gluconate [Potassium Gluconate ER] 99 mg PO DAILY 04/15/21 [History] traMADol HCL 50 mg PO TID PRN 04/15/21 [History] Ciprofloxacin HCl [Cipro] 250 mg PO Q12HR 3 Days #6 tab 04/19/21 [Rx] Ketorolac [Toradol] 10 mg PO Q6HR PRN #15 tab 04/19/21 [Rx] Follow up Appointment(s)/Referral(s): Alen Kim MD [STAFF PHYSICIAN] - 1 Week Activity/Diet/Wound Care/Special Instructions: Diet as tolerated. Drink plenty of fluids. Avoid lifting, driving, and strenuous activity. Okay to shower. Patient should begin taking antibiotics one day prior to her post-op appointment with Dr. Kim. Discharge Disposition: HOME SELF-CARE
[2021-04-19 08:22] VITALS: BP 114/67; PULSE 89
--- NOTE | 2021-04-19 08:51 | P.ANPRN ---
Procedure Note - Anesthesia - Nerve Block Performed Bilateral Erector Spinae Single Time Out Performed: Yes Date of Procedure: 04/19/21 Procedure Start Time: 13:58 Procedure Stop Time: 14:06 Location of Patient: PreOp Indication: Acute Post-Operative Pain, Requested by Surgeon Sedation Type: Sedate with meaningful contact maintained Preparation: Sterile Prep Position: Prone Needle Types: Pajunk Needle Gauge: 21 Ultrasound used to visualize needle placement: Yes Ultrasound used to observe medication spread: Yes Blood Aspirated: No Pain Paresthesia on Injection Noted: No Resistance on Injection: Normal Image Stored and Saved: Yes Events: Uneventful and Well Tolerated (Ropivacaine 15% 15 mL plus normal saline 10 mL plus dexamethasone 4 mg bilaterally at L1)
[2021-04-19] MEDS ORDERED: NON FORMULARY DRUG (Potassium Gluconate [Potassium Gluconate Er] 99 MG Tablet) PO SCH (09:00)
[2021-04-19] MEDS ORDERED: MAGNESIUM OXIDE 400 MG TAB PO SCH (09:00)
== END 2021-04-19 15:02 | disposition home or self-care (01) | DRG 661 ==
LOC: 2ORMAIN 12:00 → 4SSUR 19:39
PROVIDERS: ADMIT Urology; ATTEND Urology
PROC: 0DNW4ZZ Release Peritoneum, Percutaneous Endoscopic Approach (ICD-10-PCS; 2021-04-18)
PROC: 8E0W4CZ Robotic Assisted Procedure of Trunk Region, Percutaneous Endoscopic Approach (ICD-10-PCS; 2021-04-18)
PROC: 0TB74ZZ Excision of Left Ureter, Percutaneous Endoscopic Approach (ICD-10-PCS; principal; 2021-04-18 13:50)
DX: N13.1 Hydronephrosis with ureteral stricture, not elsewhere classified (principal); E11.9 Type 2 diabetes mellitus without complications; N73.6 Female pelvic peritoneal adhesions (postinfective); K58.9 Irritable bowel syndrome, unspecified; M19.90 Unspecified osteoarthritis, unspecified site; R31.0 Gross hematuria; Z88.0 Allergy status to penicillin; Z91.048 Other nonmedicinal substance allergy status; Z85.828 Personal history of other malignant neoplasm of skin; Z90.49 Acquired absence of other specified parts of digestive tract; Z90.710 Acquired absence of both cervix and uterus; Z96.651 Presence of right artificial knee joint; Z79.84 Long term (current) use of oral hypoglycemic drugs; Z79.899 Other long term (current) drug therapy
CPT/HCPCS: 64999; 94760

== ENCOUNTER → 2021-05-03 | Outpatient (CLI) | payer MEDICARE ==
--- NOTE | 2021-05-03 11:08 | PE ---
EXAMINATION TYPE: PET CT fusion skull to thigh DATE OF EXAM: 05/03/2021 COMPARISON: CT urogram March 07, 2021 HISTORY: Uterine cancer diagnosed 2014. History of right breast cancer in 2017. Recent surgery for recurrence causing left-sided hydronephrosis after recent abnormal CT TECHNIQUE: Following the intravenous administration of 9.39 mCi of F-18 FDG, whole body images are p erformed from the skull base to the midthigh. Images are reviewed on the computer in the coronal, ax ial, and sagittal planes. Reconstructed rotating images are created on independent workstation and r eviewed on the computer. A localization and attenuation correction CT is performed in conjunction w ith the PET scan. Blood glucose level equals 121 SCAN: Initial Scan FINDINGS: SKULL BASE AND NECK: No areas of abnormal hypermetabolic uptake. CHEST, MEDIASTINUM, AND HILAR REGION: No areas of abnormal hypermetabolic uptake. ABDOMEN AND PELVIS: Normal excretion is seen. There is new double-J left ureter stent terminating in elongated oval structure suspected elongated bladder extending into the left pelvis. Uterus redemonst rated surgically absent. Low oval 4.6 x 1.8 cm structure left pelvis is ametabolic possible new lymph ocele or postsurgical seroma. No definitive abnormal hypermetabolic uptake or adenopathy or residual suspicious left pelvic mass. OSSEOUS STRUCTURES: No abnormal hypermetabolic uptake. OTHER CT: Mild calcified plaque bilateral carotid bulb level. Cholecystectomy clips redemonstrated. P ersistent but improved mild to moderate left-sided hydronephrosis after ureter stent placement and hsu rgical exploration. IMPRESSION: Postsurgical change to the left collecting system and pelvis. No residual suspicious mass es or abnormal hypermetabolic uptake to suggest residual and/or metastatic malignancy.
== END | disposition home or self-care (01) ==
LOC: RADPETMAIN 07:48
PROVIDERS: ATTEND Internal Medicine Hematology & Oncology
DX: C54.9 Malignant neoplasm of corpus uteri, unspecified (principal)
CPT/HCPCS: 78815; A9552

== ENCOUNTER → 2021-09-17 | Outpatient (CLI) | payer MEDICARE ==
[~2021-09-17] MED LIST changes: -CLINDAMYCIN 600 MG in DEXTROSE 5% IN WATER 50 ML IVPB PRN; +FUROSEMIDE 10 MG/ML 2 ML VIAL IV STA; -GENTAMICIN 120 MG in SODIUM CHLORIDE 0.9% 100 ML IVPB PRN; -HEPARIN SODIUM,PORCINE/PF 5,000 UNIT/0.5 ML SYRINGE SQ PRN; -HYDROmorphone 0.5 MG/0.5 ML SYRINGE IVP PRN; -LIDOCAINE 1% (10MG/ML) FOR IV START INTRADERMA PRN; -MIDAZOLAM 2 MG/2 ML VIAL IV PRN
--- NOTE | 2021-09-17 16:01 | NM ---
EXAMINATION TYPE: NM lasix renogram DATE OF EXAM: 09/17/2021 COMPARISON: Previous exam 06/27/2019, nuclear medicine PET/CT 05/03/2021 HISTORY: Hydronephrosis, N 13.30 Following administration of 9.82 mCi Tc 99m MAG3 with 20mg Lasix. Immediate images post injection FINDINGS: Left: 17.5 %. Right: 82.5 %. Max renal flow left: 28 minutes. Max renal flow right: 82.5 minutes. Left kidney shows poor uptake of radiopharmaceutical as compared to the right, excretion is noted khang aterally. There is prompt excretion from the right kidney. T 1/2 left: NA minutes. T 1/2 right: NO T-1/2 (KIDNEY STARTED TO RE-FILL) minutes. IMPRESSION: There has been an interval change compared to prior exam. Asymmetric uptake of radiopharmaceutical is noted as described.
== END | disposition home or self-care (01) ==
LOC: RADNMMAIN 12:51
PROVIDERS: ATTEND Urology
DX: N13.30 Unspecified hydronephrosis (principal)
CPT/HCPCS: 78708; A9562

== ENCOUNTER → 2021-10-18 | Outpatient (CLI) | payer MEDICARE ==
--- NOTE | 2021-10-18 10:08 | PE ---
EXAMINATION TYPE: PET CT fusion skull to thigh DATE OF EXAM: 10/18/2021 COMPARISON: Prior PET/CT May 03, 2021 and older studies HISTORY: Uterine cancer progress study recently diagnosed 2013. Right-sided breast cancer in 2016. R ecurrence of uterine cancer late 2020. TECHNIQUE: Following the intravenous administration of 9.1 mCi of F-18 FDG, whole body images are pe rformed from the skull base to the midthigh. Images are reviewed on the computer in the coronal, axi al, and sagittal planes. Reconstructed rotating images are created on independent workstation and re viewed on the computer. A localization and attenuation correction CT is performed in conjunction wi th the PET scan. Blood glucose = 116 SCAN: Subsequent Scan FINDINGS: SKULL BASE AND NECK: No new areas of abnormal hypermetabolic uptake. CHEST, MEDIASTINUM, AND HILAR REGION: No no areas of abnormal hypermetabolic uptake. ABDOMEN AND PELVIS: Nonspecific bowel uptake is slightly more prominent on current study. Normal excr etion is redemonstrated. There is interval removal of left double-J ureter stent. Uterus redemonstra jose surgically absent. Bladder has left superior extension similar to prior. No definitive new abnorm al hypermetabolic uptake or adenopathy or new suspicious left pelvic mass to suggest local recurrence.. OSSEOUS STRUCTURES: No abnormal hypermetabolic uptake. OTHER CT: Mild calcified plaque bilateral carotid bulb level. Cholecystectomy clips redemonstrated. F acet arthropathy lower lumbar spine. Small 1.4 cm deep focal fluid collection right breast axial imag e 83 favors posttreatment seroma unchanged from prior study. IMPRESSION: No new suspicious masses or abnormal hypermetabolic uptake to suggest recurrent local or metastatic malignancy.
== END | disposition home or self-care (01) ==
LOC: RADPETMAIN 08:13
PROVIDERS: ATTEND Radiology Radiation Oncology
DX: C79.89 Secondary malignant neoplasm of other specified sites (principal)
CPT/HCPCS: 78815; A9552

== ENCOUNTER → 2021-11-12 | Outpatient (CLI) | payer MEDICARE ==
--- NOTE | 2021-11-13 10:20 | MM ---
Reason for Exam: Screening (asymptomatic). Last screening mammogram was performed 12 month(s) ago. Patient History: Menarche at age 12. First Full-Term at age 30. Late child-bearing (after 30). Hysterectomy at age 63. Postmenopausal. Breast cancer, right, age 65. Other cancer. Endometrial cancer, age 63. Patient used Hormonal Contraceptives for 10 years. 2016, Lumpectomy on the Right side. 07/01/2016, Malignant Core Biopsy on the right side. 06/16/2016, Malignant Core Biopsy on the right side. 2017, Radiation Therapy on the right side. 06/16/2016, US discontinued breast bx RT on the right side. Maternal grandmother had breast cancer. Maternal cousin had breast cancer, age 40. Prior Study Comparison: 08/23/2018 Bilateral Diagnostic Mammogram, [facility]. 11/04/2019 Bilateral Diagnostic Mammogram, [facility]. 11/05/2020 Bilateral Diagnostic Mammogram, [facility]. Tissue Density: There are scattered fibroglandular densities. Findings: Analyzed By CAD. Persistent scattered benign-appearing round and linear calcifications bilaterally. Stable distortion in the posterior upper outer aspect right breast system with posttreatment changes. There is no suspicious new group of microcalcifications or new suspicious mass in either breast. Overall Assessment: Benign, BI-RAD 2 Management: Screening Mammogram of both breasts in 1 year. A clinical breast exam by your physician is recommended on an annual basis and results should be correlated with mammographic findings. Electronically signed and approved by: Wing Ames M.D.
== END | disposition home or self-care (01) ==
LOC: RADMAMWWP 08:39
PROVIDERS: ATTEND Family Medicine
DX: Z12.31 Encounter for screening mammogram for malignant neoplasm of breast (principal)
CPT/HCPCS: 77063; 77067

== ENCOUNTER → 2022-07-09 | Outpatient (CLI) | payer MEDICARE ==
--- NOTE | 2022-07-09 15:29 | CT ---
EXAMINATION TYPE: CT ChestAbdPelvis w con DATE OF EXAM: 07/09/2022 COMPARISON: Most recent PET CT October 18, 2021 and older studies HISTORY: breast and uterine CA CT DLP: 1700.6 mGycm. Automated Exposure Control for Dose Reduction was Utilized. CONTRAST: CT scan of the thorax, abdomen and pelvis is performed with oral and with IV Contrast, patient inject ed with 100 mL of Isovue 300. FINDINGS: LUNGS: Mild underlying emphysematous change. No suspicious pulmonary nodules or masses. No pleural ef fusion or pneumothorax seen bilaterally MEDIASTINUM: There are no greater than 1 cm hilar or mediastinal lymph nodes. No cardiomegaly or pe ricardial effusion is seen. OTHER: Posttreatment changes to right breast axial image 24 are redemonstrated and stable. Possible r esidual 1.4 cm seroma. LIVER/GB: Cholecystectomy clips are redemonstrated. PANCREAS: No significant abnormality is seen. SPLEEN: No significant abnormality is seen. ADRENALS: No significant abnormality is seen. KIDNEYS: Asymmetric diminished size and cortical volume loss to the left kidney mild to moderate dist ention of the bladder extending into the left pelvis. BOWEL: Oral contrast reaches the level of the left colon. No suspicious small or large bowel dilatati on. A few distal colonic diverticula. GENITAL ORGANS: Uterus is surgically absent. LYMPH NODES: No greater than 1cm abdominal or pelvic lymph nodes are appreciated. OSSEOUS STRUCTURES: Slight grade 1 anterolisthesis L4 on L5. OTHER: Mild to moderate calcified plaque of the aorta extends into branch vessels. IMPRESSION: No suspicious new mass or adenopathy identified to suggest neoplastic recurrence. No sig nificant change from most recent PET/CT.
== END | disposition home or self-care (01) ==
LOC: RADCTMAIN 08:45
PROVIDERS: ATTEND Obstetrics & Gynecology
DX: C79.89 Secondary malignant neoplasm of other specified sites (principal)
CPT/HCPCS: 82565; 84520; 71260; 74177; 36415; Q9967

== ENCOUNTER → 2022-11-24 | Outpatient (CLI) | payer MEDICARE ==
--- NOTE | 2022-11-24 13:29 | MM ---
Reason for Exam: Screening (asymptomatic). Last mammogram was performed 1 year(s) and 1 month(s) ago. Patient History: Menarche at age 12. First Full-Term at age 30. Late child-bearing (after 30). Hysterectomy at age 63. Postmenopausal. Breast cancer, right, age 65. Other cancer. Endometrial cancer, age 63. Patient used Hormonal Contraceptives for 10 years. 2016, Lumpectomy on the Right side. 07/01/2016, Malignant Core Biopsy on the right side. 06/16/2016, Malignant Core Biopsy on the right side. 2017, Radiation Therapy on the right side. 06/16/2016, US discontinued breast bx RT on the right side. Maternal grandmother had breast cancer. Maternal cousin had breast cancer, age 40. Prior Study Comparison: 11/04/2019 Bilateral Diagnostic Mammogram, [facility]. 11/05/2020 Bilateral Diagnostic Mammogram, [facility]. 11/12/2021 Bilateral MG 3D screening mammo w/cad, [facility]. Tissue Density: There are scattered fibroglandular densities. Findings: Analyzed By CAD. There is no suspicious group of microcalcifications or new suspicious mass in either breast. Persistent scattered benign appearing round linear calcifications bilaterally. Stable distortion of posterior upper outer quadrant aspect of the right breast with posttreatment changes. Overall Assessment: Benign, BI-RAD 2 Management: Screening Mammogram of both breasts in 1 year. A clinical breast exam by your physician is recommended on an annual basis and results should be correlated with mammographic findings. Electronically signed and approved by: Tom Lombardi D.O.
== END | disposition home or self-care (01) ==
LOC: RADMAMWWP 12:50
PROVIDERS: ATTEND Family Medicine
DX: Z12.31 Encounter for screening mammogram for malignant neoplasm of breast (principal); Z78.0 Asymptomatic menopausal state; Z80.3 Family history of malignant neoplasm of breast
CPT/HCPCS: 77063; 77067

== ENCOUNTER → 2023-12-07 | Outpatient (CLI) | payer MEDICARE ==
--- NOTE | 2023-12-08 09:31 | MM ---
Reason for Exam: Screening (asymptomatic). Last screening mammogram was performed 12 month(s) ago. Patient History: Menarche at age 12. First Full-Term at age 30. Late child-bearing (after 30). Hysterectomy at age 63. Postmenopausal. Breast cancer, right, age 65. Other cancer. Endometrial cancer, age 63. Patient used Hormonal Contraceptives for 10 years. 2017, Lumpectomy on the Right side. 07/01/2016, Malignant Core Biopsy on the right side. 06/16/2016, Malignant Core Biopsy on the right side. 2017, Radiation Therapy on the right side. 06/16/2016, US discontinued breast bx RT on the right side. Maternal grandmother had breast cancer. Maternal cousin had breast cancer, age 40. Prior Study Comparison: 11/05/2020 Bilateral Diagnostic Mammogram, [facility]. 11/12/2021 Bilateral MG 3D screening mammo w/cad, [facility]. 11/24/2022 Bilateral MG 3D screening mammo w/cad, [facility]. Tissue Density: There are scattered areas of fibroglandular density. Findings: Analyzed By CAD. There is no suspicious group of microcalcifications or new suspicious mass in either breast. Stable postoperative distortion upper outer right breast posterior one third. Overall Assessment: Benign, BI-RAD 2 Management: Screening Mammogram of both breasts in 1 year. . Patient should continue monthly self-breast exams. A clinical breast exam by your physician is recommended on an annual basis. This exam should not preclude additional follow-up of suspicious palpable abnormalities. Note on Sunni scores and lifetime risk: 1. A Sunni score greater than 3% is considered moderate risk. If this is the case, consider specialist referral to assess eligibility for a risk reducing agent. 2. If overall lifetime risk for the development of breast cancer is 20% or higher, the patient may qualify for future screening with alternating mammogram and breast MRI. [facility], , 12/08/2023 9:28 AM. Electronically signed and approved by: Christiano Guerrero M.D. Radiologis
== END | disposition home or self-care (01) ==
LOC: RADMAMWWP 07:19
PROVIDERS: ATTEND Family Medicine
CPT/HCPCS: 77063; 77067